=== PATIENT | female | born 1990 | race Hispanic/Latino ===

== ENCOUNTER 2023-10-13 20:09 | Emergency (ER) | payer BC, OTHER ==
[~2023-10-13] VITALS: Ht 162.6 cm; Wt 149.7 kg
[2023-10-13 20:56] LABS: BASOPHILS # (AUTO) 0.02 K/uL (0.00-0.20); BASOPHILS % (AUTO) 0.2 % (0.0-5.0); HEMATOCRIT 41.4 % (36-48); IMMATURE GRANULOCYTE ABSOLUTE 0.03 K/uL (0-1); LYMPHOCYTES # (AUTO) 2.8 K/uL (1.0-4.8); MEAN CORPUSCULAR HEMOGLOBIN 28.9 pg (27.0-33.0); MEAN CORPUSCULAR HGB CONC 32.1 g/dL (32.0-36.0); MEAN CORPUSCULAR VOLUME 89.8 fL (79-99); MONOCYTES # (AUTO) 0.7 K/uL (0.1-1.0); MONOCYTES % (AUTO) 7.2 % (3.0-13.0); NEUTROPHILS % (AUTO) 62.3 % (40.0-77.0); PLATELET COUNT (AUTO) 262 K/uL (130-400); RED BLOOD CELL COUNT(AUTO) 4.61 MIL/uL (4.00-5.50); RED CELL DISTRIBUTION WIDTH 14.4 % (11.0-15.5); WHITE BLOOD COUNT (AUTO) 9.7 K/uL (4.8-10.8)
[2023-10-13 21:01] LABS: APPEARANCE,URINE CLEAR (CLEAR); BILIRUBIN,URINE NEGATIVE (NEGATIVE); COLOR,URINE YELLOW (YELLOW); GLUCOSE, URINE (UA) >=1000 mg/dL (NEGATIVE); KETONES,URINE 5 mg/dL (NEGATIVE); LEUKOCYTE ESTERASE ,URINE NEGATIVE Leu/uL (NEGATIVE); NITRATE,URINE NEGATIVE (NEGATIVE); OCCULT BLOOD,URINE MODERATE (NEGATIVE); PROTEIN,URINE 10 mg/dL (NEGATIVE)
[2023-10-13 21:02] LABS: ADD UA MICROSCOPIC YES
[2023-10-13 21:04] LABS: CREATININE 0.7 mg/dL (0.5-1.0); POTASSIUM 3.6 mmol/L (3.5-5.1)
[2023-10-13 21:04] LABS: HCG,QUALITATIVE URINE NEGATIVE (NEGATIVE)
[2023-10-13 21:05] LABS: BACTERIA,URINE RARE /HPF (None Seen); MUCUS,URINE RARE LPF (None Seen); SQUAMOUS EPITHELIAL CELL,UR RARE /HPF (0-2)
[2023-10-13 21:07] LABS: INR 0.95 (0.85-1.15); PROTHROMBIN TIME 10.3 SEC (9.6-11.6)
[2023-10-13 21:08] LABS: PARTIAL THROMBOPLASTIN TIME 28.2 SEC (26.3-35.5)
[2023-10-13 21:16] LABS: B-TYPE NATRIURETIC PEPTIDE 64 pg/mL (0-100)
[2023-10-13] MEDS: PANTOPRAZOLE 40 MG/VIAL IVP ONE (22:14)
[2023-10-13] MEDS: MAG/ALUM/SIMETH 30 ML UDCUP PO ONE (22:14)
[2023-10-13] MEDS: KETOROLAC 30MG VIAL (30MG/ML) IM ONE (22:14)
[2023-10-13] MEDS: LIDOCAINE HCL 2% VISCOUS 15 ML UDCUP PO ONE (22:15)
[2023-10-13] MEDS ORDERED: NAPR-1196 PO (22:27)
[2023-10-13] MEDS ORDERED: PANT40TA55 PO (22:27)
[2023-10-13 22:43] VITALS: BP 124/71; PULSE 63; RESP 18; O2SAT 97
== END 2023-10-13 22:57 | disposition home or self-care (01) ==
LOC: EDH 20:09
DX: K21.9 Gastro-esophageal reflux disease without esophagitis (principal); R07.89 Other chest pain; E11.9 Type 2 diabetes mellitus without complications; I10 Essential (primary) hypertension; J45.909 Unspecified asthma, uncomplicated; Z90.89 Acquired absence of other organs; Z98.890 Other specified postprocedural states
CPT/HCPCS: 99285; 96374; 71045; 82550; 84484 ×2; 80048; 83880; 85025; 85610; 85730; 81001; 81025; 36415; 96372; 93005; J1885; J2470

== ENCOUNTER → 2023-11-11 | Outpatient (CLI) | payer OTHER ==
[~2023-11-11] MED LIST: NAPR-1196 PO; PANT40TA55 PO
== END | disposition home or self-care (01) ==
LOC: RAH 08:07
PROVIDERS: ATTEND Physical Medicine & Rehabilitation
DX: M47.816 Spondylosis without myelopathy or radiculopathy, lumbar region (principal); M48.07 Spinal stenosis, lumbosacral region; M51.36 Other intervertebral disc degeneration, lumbar region; M53.2X6 Spinal instabilities, lumbar region
CPT/HCPCS: 72148

== ENCOUNTER → 2023-11-13 | Outpatient (CLI) | payer OTHER | END | disposition home or self-care (01) | LOC: RAH 13:32 | PROVIDERS: ATTEND Physical Medicine & Rehabilitation | DX: M47.816 Spondylosis without myelopathy or radiculopathy, lumbar region (principal); E04.1 Nontoxic single thyroid nodule; M48.061 Spinal stenosis, lumbar region without neurogenic claudication; M51.36 Other intervertebral disc degeneration, lumbar region; M53.2X6 Spinal instabilities, lumbar region | CPT/HCPCS: 72131; 76536 ==

== ENCOUNTER → 2023-11-21 | Outpatient (CLI) | payer OTHER | END | disposition home or self-care (01) | LOC: SHCH 12:52 | PROVIDERS: ATTEND Internal Medicine Cardiovascular Disease | DX: R00.2 Palpitations (principal) | CPT/HCPCS: 93306 ==

== ENCOUNTER → 2023-12-09 | Outpatient (CLI) | payer OTHER ==
[2023-12-09 13:27] LABS: BASOPHILS # (AUTO) 0.04 K/uL (0.00-0.20); BASOPHILS % (AUTO) 0.4 % (0.0-5.0); EOSINOPHILS # (AUTO) 0.15 K/uL (0.00-0.70); EOSINOPHILS % (AUTO) 1.4 % (0.0-8.0); HEMATOCRIT 41.5 % (36-48); IMMATURE GRANULOCYTE ABSOLUTE 0.05 K/uL (0-1); LYMPHOCYTES # (AUTO) 3.4 K/uL (1.0-4.8); LYMPHOCYTES % (AUTO) 33.1 % (21.0-51.0); MEAN CORPUSCULAR HEMOGLOBIN 28.7 pg (27.0-33.0); MEAN CORPUSCULAR HGB CONC 31.8 g/dL (32.0-36.0); MEAN CORPUSCULAR VOLUME 90.2 fL (79-99); MONOCYTES # (AUTO) 0.6 K/uL (0.1-1.0); NEUTROPHILS # (AUTO) 6.1 K/uL (1.8-7.7); NEUTROPHILS % (AUTO) 58.6 % (40.0-77.0); PLATELET COUNT (AUTO) 286 K/uL (130-400); RED CELL DISTRIBUTION WIDTH 14.1 % (11.0-15.5); WHITE BLOOD COUNT (AUTO) 10.4 K/uL (4.8-10.8)
[2023-12-09 13:34] LABS: HEMOGLOBIN A1C 6.2 % (4.0-6.0)
[2023-12-09 13:54] LABS: % IRON SATURATION 12.5 % (22-44)
[2023-12-09 14:10] LABS: ALBUMIN 3.3 g/dL (3.5-5.0); BILIRUBIN,TOTAL 0.1 mg/dL (0.2-1.0); CREATININE 0.6 mg/dL (0.5-1.0); POTASSIUM 3.2 mmol/L (3.5-5.1); TOTAL PROTEIN, SERUM 7.8 g/dL (6.0-8.3)
[2023-12-09 14:31] LABS: THYROID STIMULATING HORMONE 3.93 uIU/mL (0.36-3.74)
== END | disposition home or self-care (01) ==
LOC: RAH 12:28
PROVIDERS: ATTEND Physician Assistant
DX: M17.0 Bilateral primary osteoarthritis of knee (principal); M25.862 Other specified joint disorders, left knee; M25.861 Other specified joint disorders, right knee; M25.762 Osteophyte, left knee; M25.761 Osteophyte, right knee; K21.00 Gastro-esophageal reflux disease with esophagitis, without bleeding; I10 Essential (primary) hypertension; E11.9 Type 2 diabetes mellitus without complications; E66.01 Morbid (severe) obesity due to excess calories; M25.562 Pain in left knee; M25.561 Pain in right knee
CPT/HCPCS: 36415; 73565; 80053; 80061; 82306; 82607; 82728; 82746; 83036; 83540; 83550; 84439; 84443; 84590; 85025; 73560

== ENCOUNTER → 2023-12-11 | Outpatient (CLI) | payer OTHER ==
[~2023-12-11] VITALS: Ht 12.7 cm; Wt 153.1 kg
== END | disposition home or self-care (01) ==
LOC: DTH 08:04
PROVIDERS: ATTEND Surgery
DX: E66.01 Morbid (severe) obesity due to excess calories (principal); I10 Essential (primary) hypertension; K21.9 Gastro-esophageal reflux disease without esophagitis; E11.9 Type 2 diabetes mellitus without complications; M19.90 Unspecified osteoarthritis, unspecified site; Z68.32 Body mass index [BMI] 32.0-32.9, adult; Z71.3 Dietary counseling and surveillance
CPT/HCPCS: 97802

== ENCOUNTER → 2024-01-08 | Outpatient (CLI) | payer OTHER ==
--- NOTE | 2024-01-08 08:25 | NUR ---
BARIATRIC FOLLOW UP NOTE VISIT 2 OF 6 Wt: 330 LBS DOS: 01/08/24 Upon follow up visit, pt presents with a 7 lb wt loss. 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 D 5000 IU every other day, plans to start exercising. RD conducted 24 hr food recall. Breakfast: N/A Lunch: N/A Dinner: two flour tacos egg and chorizo RD reviewed simple CHO and complex CHO intake, encouraged pt to decrease soft drink (even sugar free) consumption secondary to carbonation and caffeine, discussed labs, encouraged Pt to exercise, pt verbalized understanding. RD and pt established goals for next month: -MVI QD -2 meals per day -walking 1x per week for 10 min Thank you for this visit Addendum: 01/08/24 at [address] Amended: Links added.
== END | disposition home or self-care (01) ==
LOC: DTH 07:37
PROVIDERS: ATTEND Surgery
DX: E66.01 Morbid (severe) obesity due to excess calories (principal); E11.9 Type 2 diabetes mellitus without complications; I10 Essential (primary) hypertension; K21.9 Gastro-esophageal reflux disease without esophagitis; G47.33 Obstructive sleep apnea (adult) (pediatric); Z71.3 Dietary counseling and surveillance
CPT/HCPCS: 97803

== ENCOUNTER → 2024-02-04 | Outpatient (CLI) | payer OTHER ==
[2024-02-04 22:14] VITALS: PULSE 64; RESP 12
[2024-02-04 22:30] VITALS: PULSE 65; RESP 18
[2024-02-04 23:00] VITALS: PULSE 64; RESP 14
[2024-02-04 23:28] VITALS: PULSE 62; RESP 16
[2024-02-05] VITALS (13 sets, daily range): PULSE 50–68; RESP 6–16
--- NOTE | 2024-02-05 00:48 | NUR ---
CURRENT MEDICATIONS: CHLORRHALIDONE 25MG, LOSARTAN 25 MG, METOPROLOL 180 MG, TARDIANE 25 MG, FLUOXETINE 20MG, ZYRTEC 10 MG, MICROGESTIN P/20. Addendum: 02/05/24 at 0051 by RILEY HEWITT Amended: Links added.
== END | disposition home or self-care (01) ==
LOC: SLP 20:44
PROVIDERS: ATTEND Internal Medicine Pulmonary Disease
DX: G47.33 Obstructive sleep apnea (adult) (pediatric) (principal); G47.10 Hypersomnia, unspecified; G47.11 Idiopathic hypersomnia with long sleep time; G47.12 Idiopathic hypersomnia without long sleep time; G47.30 Sleep apnea, unspecified
CPT/HCPCS: 95811

== ENCOUNTER → 2024-02-05 | Outpatient (CLI) | payer SELFPAY ==
--- NOTE | 2024-02-05 08:14 | NUR ---
FOLLOW PRE-OP/POST-OP DIETARY RECOMMENDATIONS BARIATRIC PRE-OP VISIT VISIT 3 OF 6 Wt: 329.4 lbs DOS: 02/05/24 Upon follow up visit, pt presented with a 1 lb Wt loss. Pt reported she has a job interview today, has been stressed due to being laid off, continues w/ carbonation, walking 2x per week for 15 min, had a sleep study today, does not take MVI regularly. RD reviewed educational material for pre-op and post-op diet recommendations with detailed phases of diet post-op. Pt was informed of importance of lifelong vitamin/mineral supplementation, choosing protein first during meals (pt was educated on higher protein requirements), choosing low calorie, sugar free, carbonated free and caffeine beverages. RD also informed pt on lifelong commitment to exercise and dietary recommendations for optimal success post surgery. RD encouraged getting blood work every 3 to 6 months, including B-vitamins, Pt verbalized understanding. RD informed Pt on moving around after procedure to prevent DVT, Pt verbalized understanding. Pt was encouraged to contact RD as questions arise and to attend support groups. RD provided protein supplement recommendations along with Bariatric Vitamin recommendations via graphics to patient. Pt with several questions, all of which were answered. Fair to poor compliance suspected. Pt will benefit from outpatient bariatric dietitian follow up post procedure. Pt to follow up with PCP for labs. Thank you for this visit. Addendum: 02/05/24 at [address] Amended: Links added.
== END | disposition home or self-care (01) ==
LOC: DTH 07:46
PROVIDERS: ATTEND Surgery
DX: E66.01 Morbid (severe) obesity due to excess calories (principal); E11.9 Type 2 diabetes mellitus without complications; K21.9 Gastro-esophageal reflux disease without esophagitis; G47.33 Obstructive sleep apnea (adult) (pediatric); Z71.3 Dietary counseling and surveillance; Z68.43 Body mass index [BMI] 50.0-59.9, adult
CPT/HCPCS: 97803

== ENCOUNTER 2024-03-11 20:57 | Inpatient (IN) | payer OTHER ==
[~2024-03-11] VITALS: Ht 162.6 cm; Wt 143.3 kg
[~2024-03-11 20:57] MED LIST changes: +CETI-89 PO; +CHLO25TA3 PO; +CYCL10TA16 PO; +EMPA25TA PO; +FLUO20TA29 PO; +LOSA25TA41 PO; +METO-409 PO; -NAPR-1196 PO; -PANT40TA55 PO; +[UNRECOGNIZED DRUG - CODE] PO
[2024-03-11] MEDS ORDERED: hydroMORPHone 1 MG INJ IVP ONE (21:30)
[2024-03-11 21:51] LABS: BASOPHILS # (AUTO) 0.04 K/uL (0.00-0.20); BASOPHILS % (AUTO) 0.3 % (0.0-5.0); EOSINOPHILS # (AUTO) 0.08 K/uL (0.00-0.70); EOSINOPHILS % (AUTO) 0.6 % (0.0-8.0); HEMATOCRIT 38.5 % (36-48); IMMATURE GRANULOCYTE ABSOLUTE 0.08 K/uL (0-1); LYMPHOCYTES # (AUTO) 2.9 K/uL (1.0-4.8); LYMPHOCYTES % (AUTO) 23.2 % (21.0-51.0); MEAN CORPUSCULAR HEMOGLOBIN 28.8 pg (27.0-33.0); MEAN CORPUSCULAR HGB CONC 32.2 g/dL (32.0-36.0); MEAN CORPUSCULAR VOLUME 89.5 fL (79-99); MONOCYTES # (AUTO) 0.9 K/uL (0.1-1.0); MONOCYTES % (AUTO) 7.2 % (3.0-13.0); NEUTROPHILS # (AUTO) 8.4 K/uL (1.8-7.7); NEUTROPHILS % (AUTO) 68.1 % (40.0-77.0); PLATELET COUNT (AUTO) 257 K/uL (130-400); WHITE BLOOD COUNT (AUTO) 12.4 K/uL (4.8-10.8)
[2024-03-11] MEDS: LACTATED RINGERS 1000ML 1,000 ML IV ONE (21:53)
--- NOTE | 2024-03-11 21:57 | ERN ---
General Chief Complaint: Abdominal Pain Stated Complaint: ABDOMINAL PAIN, NECK AND BACK PAIN Time Seen by MD: 21:09 History of Present Illness Initial Comments 33-year-old female, history of diabetes, hypertension, obesity, asthma presents for left-sided abdominal chest pain and shoulder pain. Patient had a laparoscopic gastric sleeve placed on 03/05/[address] Yan Rodriges. She reports that initially she was feeling well but over the last day or so she has had episodes of left-sided chest pain that is significant it is also left-sided abdominal pain radiates to the left arm. Today she had multiple episodes of near-syncope where she felt as though she was going to lose consciousness. She took her blood pressure at home it was 86 systolic. She denies any cough or co ngestion. She denies any vomiting or diarrhea. She has been p.o. tolerant she was initially drinking 36 oz daily but today she has only been able to keep down 8 oz or so. Of note, while in the emergency department the patient had an episode of becoming very pale, diaphoretic, in her blood pressure dropped to the 80s systolic in her heart rate increased to the 100 and 30s. She received fluids and these symptoms improved. Allergies: Coded Allergies: No Known Allergies (Unverified Allergy, Unknown, 10/13/23) Home Meds Reported Medications Cyclobenzaprine HCl (Flexeril) 10 Mg Tab, 10 MG PO BID PRN for MUSCLE SPASMS, TAB 03/02/24 Norethindrone A-E Estradiol (Microgestin) 1 Mg-20 Mcg Tablet, 1 EACH PO DAILY, TAB 03/02/24 Empagliflozin (Jardiance) 25 Mg Tablet, 25 MG PO DAILY, TAB 03/02/24 Cetirizine HCl (Zyrtec) 10 Mg Tablet, 10 MG PO DAILY, TAB 03/02/24 Fluoxetine HCl (Fluoxetine HCl) 20 Mg Tablet, 20 MG PO DAILY, TAB 03/02/24 Chlorthalidone (Chlorthalidone) 25 Mg Tablet, 25 MG PO DAILY, TAB 03/02/24 Losartan Potassium (Losartan Potassium) 25 Mg Tablet, 25 MG PO DAILY, TAB 03/02/24 Metoprolol Succinate (Metoprolol Succinate) 100 Mg Tab.er.24h, 100 MG PO DAILY, TAB 03/02/24 Discontinued Reported Medications Cyclobenzaprine HCl (Flexeril) 10 Mg Tab, 10 MG PO AD PRN for MUSCLE SPASMS, TAB 03/02/24 Past Medical History Past Medical History: Asthma, Diabetes-Type II, Hypertension, Other Medical History Other: TACHYCARDIA, PVC Past Surgical History: Tonsillectomy, Other Surgical History Other: LEFT KNEE, ADNOIDS, OVARIAN CYST, NASAL ROS Dictation CONSTITUTIONAL: No chills, no fever, no weakness, no diaphoresis, no malaise. HEAD/FACE: No signs of trauma. EENT: No eye pain, no blurred vision, no tearing, no double vision, no ear pain, no ear discharge, no nose pain, no nasal congestion, no throat pain, no throat swelling, no mouth pain. RESPIRATORY: No cough, no orthopnea, no SOB, no stridor, no wheezing. CARDIOVASCULAR: No chest pain, no edema, no palpitations, no syncope. GASTROINTESTINAL/ABDOMINAL: Left-sided abdominal pain left-sided chest pain dizziness near-syncope GENITOURINARY: No abnormal discharge, no dysuria, no frequent urination, no hematuria. No complaints of pain in the genitals. MUSCULOSKELETAL: No back pain, no gout, no joint pain, no joint swelling, no muscle pain, no muscle stiffness, no neck pain. INTEGUMENTARY: No change in color, no change in hair/nails, no dryness, no lesion, no lumps, no rash. NEUROLOGICAL/PSYCH: No anxiety, not depressed, no emotional problem, no headache, no numbness, no pre-existing deficit, no history of seizures, no tremors, no weakness. HEMATOLOGIC/LYMPHATIC: Not anemic, no history of blood clots, no apparent bleeding, no bruising, glands not swollen. All Systems Negative, Except as Noted. Physical Exam Physical Exam Dictation VITAL SIGNS: Reviewed. GENERAL APPEARANCE: Alert, moderate distress, obese HEAD AND FACE: Non-traumatic. EYES: PERRL, pink conjunctivas, eyelid no trauma, anterior chamber clear. EARS: Pinnas intact and no signs of trauma or erythema. Ear canals clear and no discharge. TMs no erythema. NOSE: No discharge, no bleeding. OROPHARYNX: Mouth normal, teeth no caries, tongue pink. Pharynx clear, no erythema. Tonsils no exudates, no abscesses noted. Mucous membrane moist. NECK: Supple, non-tender, no thyromegaly, no masses, no JVD, no bruits. BREAST: Deferred. CHEST: No tenderness, no crepitus, no paradoxical movement, no retractions. LUNGS: Clear, well-ventilated, symmetric, no rales, no wheezing, no rhonchi, no stridor, good breath sounds bilaterally. HEART: Regular rate, regular rhythm, no murmur, no gallops. VASCULAR: No peripheral edema. ABDOMEN: Soft, positive bowel sounds, nondistended, no guarding, nontender, no rebound, no masses no hepatomegaly, no splenomegaly, no Funes's sign, no hernias. Well healing laparoscopic wounds. RECTAL: Deferred. GENITAL: Deferred. NEUROLOGICAL: Normal speech, gross motor function intact, gross sensory function intact. MUSCULOSKELETAL: Neck nontender, full range of motion, back nontender, full range of motion. EXTREMITIES: Nontender, full range of motion. SKIN: Color pink, dry, no turgor, no rash, no lacerations, no abrasions, no contusions. LYMPHATICS: Deferred. Results Laboratory and Microbiology Lab and Micro Result Laboratory Tests Test 03/11/24 21:31 03/11/24 21:37 White Blood Count 12.4 K/uL (4.8-10.8) H Red Blood Count 4.30 MIL/uL (4.00-5.50) Hemoglobin 12.4 g/dL (12.0-16.0) Hematocrit 38.5 % (36-48) Mean Corpuscular Volume 89.5 fL (79-99) Mean Corpuscular Hemoglobin 28.8 pg (27.0-33.0) Mean Corpuscular Hemoglobin Concent 32.2 g/dL (32.0-36.0) Red Cell Distribution Width 14.0 % (11.0-15.5) Platelet Count 257 K/uL (130-400) Mean Platelet Volume 11.9 fL (7.5-10.5) H Immature Granulocyte % (Auto) 0.6 % (0-1) Neutrophils (%) (Auto) 68.1 % (40.0-77.0) Lymphocytes (%) (Auto) 23.2 % (21.0-51.0) Monocytes (%) (Auto) 7.2 % (3.0-13.0) Eosinophils (%) (Auto) 0.6 % (0.0-8.0) Basophils (%) (Auto) 0.3 % (0.0-5.0) Neutrophils # (Auto) 8.4 K/uL (1.8-7.7) H Lymphocytes # (Auto) 2.9 K/uL (1.0-4.8) Monocytes # (Auto) 0.9 K/uL (0.1-1.0) Eosinophils # (Auto) 0.08 K/uL (0.00-0.70) Basophils # (Auto) 0.04 K/uL (0.00-0.20) Absolute Immature Granulocyte (auto 0.08 K/uL (0-1) Nucleated Red Blood Cells 0.0 % (0.0-0.19) Sodium Level 135 mmol/L (136-145) L Potassium Level 3.4 mmol/L (3.5-5.1) L Chloride Level 97 mmol/L (101-111) L Carbon Dioxide Level 23 mmol/L (21-32) Blood Urea Nitrogen 8 mg/dL (7-18) Creatinine 0.6 mg/dL (0.5-1.0) Glomerular Filtration Rate Calc 121 mL/min (>90) Random Glucose 79 mg/dL (70-105) Total Calcium 9.1 mg/dL (8.5-10.1) Total Bilirubin 0.6 mg/dL (0.2-1.0) Direct Bilirubin 0.1 mg/dL (0.0-0.3) Aspartate Amino Transf (AST/SGOT) 43 U/L (10-37) H Alanine Aminotransferase (ALT/SGPT) 73 U/L (12-78) Alkaline Phosphatase 63 U/L (50-136) Troponin I High Sensitivity 5 ng/L (4-50) Total Protein 7.3 g/dL (6.0-8.3) Albumin 3.2 g/dL (3.5-5.0) L Lipase 33 U/L (16-77) Serum Test, Qualitative NEGATIVE (NEGATIVE) Whole Blood Glucose 102 MG/DL (70-110) MDM CC: Abdominal pain, chest pain, neck pain, syncopal episode x2 Historian: Patient Comorbidities: Obesity, asthma, DM two, HTN. Recent laparoscopic gastric band on 03/05/2024. Vital signs: Initially tachycardic 106, blood pressure 144/92. Other vital signs stable. Differential diagnosis: Pulmonary embolism, postop complication, ACS, surgical pathology, other. Labs (independently ordered and interpreted by me): Leukocytosis 12.4k, no shift no bands. H and H stable 12.4/38.5. Chemistry panel unremarkable, liver enzymes unremarkable, troponin normal. Lipase normal. HCG is negative. CXR (independently ordered and interpreted by me): No acute abnormalities no focal infiltrates no cardiomegaly. CT scan of the abdomen and pelvis with contrast (independently ordered and interpreted by me): Free fluid around the liver in the pelvis, possibly a postop complication. No free air. Possibly a hematoma next of the stomach. Possibly hemoperitoneum. CT angio of the chest (independently interpreted by me): No lung field abnormalities, no pulmonary embolism. Treatment in ED: 1 mg IV Dilaudid, 2 L normal saline IV, fentanyl IV. Consultations in ED: Dr. Almonte, radiologist. It we reviewed the imaging. He does not recommend any further imaging at this time, but we can repeat a CT scan tomorrow if there is any indications the patient was still bleeding. Dr. Yan Rodriges, surgeon performed the procedure on 03/05/2024. We agreed on a plan to admit the patient was in the ICU for close monitoring, hemoglobin monitoring, and pain control. He will see the patient tomorrow. We will call back if there is any emergent need tonight. Yudi Gottlieb, midlevel provider for ICU team. Accepts the patient to the ICU. Rj, mid-level provider for [facility] hospitalist team. Will admit the patient. Plan: ICU admission, q.6 hemoglobin checks for now. Pain control. REASON: L sided CP ORDERING PHYSICIAN: MIS CHAMBERS DO PROCEDURE: CXR1VW - CHEST 1VW CHEST 1VW HISTORY: Left-sided chest pain COMPARISON: None FINDINGS: A frontal projection of the chest was obtained. There are bilateral pulmonary infiltrates suggestive of pulmonary vascular congestion with possible superimposed pneumonitis. The heart is borderline enlarged. Degenerative changes are seen. No evidence of aortic calcification is seen. IMPRESSION: 1. Bilateral pulmonary infiltrates are seen suggestive of pulmonary vascular congestion with possible superimposed pneumonitis. REASON: L sided abd pain, bloating, CP s/p lap band 03/05 ORDERING PHYSICIAN: MIS CHAMBERS DO PROCEDURE: CHES PE - CT CHEST PE PROTOCOL WWO CONT ADDENDUM REPORT CT CHEST PE PROTOCOL WWO CONT HISTORY: Left-sided abdominal pain COMPARISON: None TECHNIQUE: CT angiography of the chest was performed. The study was performed using angiographic technique with maximum intensity projection reconstruction images. Patient was given 100 cc of Omnipaque through intravenous route. FINDINGS: No CT evidence of filling defect is seen to suggest pulmonary embolus. No CT evidence of aortic dissection is seen. No evidence of parenchymal disease is seen. No CT evidence of pleural effusion or pericardial effusion is seen. The heart is enlarged. No evidence of adrenal mass is seen. There is small perihepatic and moderate perisplenic complex fluid collection. Due to patient's recent history of abdominal procedure, findings may be related to pneumoperitoneum. Post gastric surgical changes are seen. Degenerative changes of the spine are noted. IMPRESSION: 1. No CT evidence of acute pulmonary embolus is seen. There is small perihepatic and moderate perisplenic complex fluid collection. Due to patient's recent history of abdominal procedure, findings may be related to hemoperitoneum. Post gastric surgical changes are seen. Report was given to the emergency room physician. REASON: L sided abd pain, bloating, CP s/p lap band 03/05 ORDERING PHYSICIAN: MIS CHAMBERS DO PROCEDURE: ABD PEL W - CT ABDOMEN/PELVIS W/CONTRAST CT ABDOMEN/PELVIS W/CONTRAST HISTORY: Left-sided abdominal pain COMPARISON: None TECHNIQUE: Multiple sequential axial images of the abdomen and pelvis were obtained from the dome of the diaphragm through symphysis pubis. Patient was not given contrast through intravenous route. Oral contrast was not given. FINDINGS: No pleural effusion is seen bilaterally. There is no evidence of parenchymal disease or pulmonary nodule of the visualized lower lungs. Degenerative changes of the thoracolumbar spine are present. The heart is not enlarged. Liver is enlarged with fatty changes measuring 18 cm. Post gastric surgical changes are seen. Complex fluid is also seen adjacent to the stomach at the postop site measuring 2.5 x 10.4 cm may be related to hematoma. There is left perisplenic complex fluid collection may be related to blood product. Clinical correlation is recommended. Splenic injury with postop bleed cannot be excluded. The liver, adrenal glands and pancreas are unremarkable. There is no evidence of hydronephrosis bilaterally. No evidence of renal stone is seen. Fecal material is seen in the colon. There are normal size retroperitoneal and mesenteric lymph nodes. There is small complex ascites. Atherosclerotic changes are present. Pelvic sidewalls are symmetric bilaterally. Bladder is well distended without wall thickening. IMPRESSION: 1. There is left perisplenic complex fluid collection may be related to blood product. Clinical correlation is recommended. Complex fluid is also seen adjacent to the stomach at the postop site measuring 2.5 x 10.4 cm may be related to hematoma. Splenic injury with postop bleed cannot be excluded. There is small complex ascites. Findings may be related to hemoperitoneum. Report was given to the emergency room physician. ED Course Orders Procedure Category Date Status Time Cbc With Differential LAB 03/11/24 Complete 21: Troponin I High LAB 03/11/24 Complete Sensitivity 21:22 Urinalysis Profile LAB 03/11/24 Logged 21:22 Ct Abdomen/Pelvis CT 03/11/24 Resulted W/Contrast 21:22 Chest 1vw RAD 03/11/24 Resulted 21:22 Lipase LAB 03/11/24 Complete 21:22 Basic Metabolic Panel LAB 03/11/24 Complete 21:22 Hydromorphone 1 Mg PHA 03/11/24 Complete Inj (Dilaudid 1mg Inj 21:30 Lactated Ringers PHA 03/11/24 Complete 1000ml (Lactated 21:30 Ct Chest Pe Protocol CT 03/11/24 Resulted Wwo Cont 21:22 Hepatic Function Panel LAB 03/11/24 Complete 21:22 Fentanyl Citrate Pf PHA 03/11/24 Complete 0.05 Mg/Ml (Fentanyl 22:00 Testing, LAB 03/11/24 Complete Serum Hcg 22:14 Iohexol (Omnipaque) PHA 03/11/24 Complete 22:37 Type And Screen BBK 03/11/24 Complete 23:29 Current Medications Medications (Trade) Dose Ordered Sig/Miko Route PRN Reason Start Time Stop Time Status Last Admin Dose Admin Fentanyl Citrate (FENTanyl CITRate PF 50 MCG/ 1 ML 2ML VIAL) 50 mcg ONCE ONCE IVP 03/11/24 22:00 03/11/24 22:01 DC 03/11/24 22:28 Hydromorphone HCl (DiLAUDid 1MG INJ) 1 mg ONCE ONCE IVP 03/11/24 21:30 03/11/24 22:25 DC Iohexol (Omnipaque) 35,000 mg STK-MED ONCE IV 03/11/24 22:37 03/11/24 22:38 DC Lactated Ringer's 1,000 ml @ 0 mls/hr ONCE ONCE IV 03/11/24 21:30 03/11/24 21:31 DC 03/11/24 21:53 Vital Signs Date Time Temp Pulse Resp B/P (MAP) Pulse Ox O2 Delivery O2 Flow Rate FiO2 03/11/24 22:09 97.5 85 26 141/77 94 Room Air* 0 21 03/11/24 21:09 97.9 108 26 101/75 94 Room Air* 0 21 03/11/24 21:00 106 20 144/92 97 Room Air 0 DX & DISP Disposition: Inpatient Departure Impression: Primary Impression: Syncope Additional Impression: Post-operative complication Critical Time: 30 minutes (Critical Care Procedure NoteAuthorized and Performed by: meTotal critical care time: Approximately 36 minutesDue to a high probability of clinically significant, life threatening deterioration, the patient required my highest level of preparedness to intervene emergently and I personally spent this critical care time directly and personally managing the patient. This critical care time included obtaining a history; examining the patient; pulse oximetry; ordering and review of studies; arranging urgent treatment with development of a management plan; evaluation of patient's response to treatment; frequent reassessment; and, discussions with other providers.This critical care time was performed to assess and manage the high probability of imminent, life-threatening deterioration that could result in multi-organ failure. It was exclusive of separately billable procedures and treating other patients and teaching time.Please see MDM section and the rest of the note for further information on patient assessment and treatment.) Condition: Critical Referrals: HECTOR ESTRADA MD (PCP) MIS CHAMBERS DO Mar 11, 2024 21:57
[2024-03-11 22:02] LABS: CREATININE 0.6 mg/dL (0.5-1.0); POTASSIUM 3.4 mmol/L (3.5-5.1)
[2024-03-11 22:08] LABS: ALBUMIN 3.2 g/dL (3.5-5.0); BILIRUBIN,DIRECT 0.1 mg/dL (0.0-0.3); BILIRUBIN,TOTAL 0.6 mg/dL (0.2-1.0); TOTAL PROTEIN, SERUM 7.3 g/dL (6.0-8.3)
[2024-03-11] MEDS: FENTanyl CITRate PF 50 MCG/1 ML 2ML VIAL IVP ONE (22:28)
--- NOTE | 2024-03-11 22:34 | HMCIMG ---
CHEST 1VW HISTORY: Left-sided chest pain COMPARISON: None FINDINGS: A frontal projection of the chest was obtained. There are bilateral pulmonary infiltrates suggestive of pulmonary vascular congestion with possible superimposed pneumonitis. The heart is borderline enlarged. Degenerative changes are seen. No evidence of aortic calcification is seen. IMPRESSION: 1. Bilateral pulmonary infiltrates are seen suggestive of pulmonary vascular congestion with possible superimposed pneumonitis.
[2024-03-11] MEDS ORDERED: IOHEXOL 350 MG/ML 100ML INFUS..BTL IV ONE (22:37)
--- NOTE | 2024-03-11 23:29 | HMCIMG ---
CT ABDOMEN/PELVIS W/CONTRAST HISTORY: Left-sided abdominal pain COMPARISON: None TECHNIQUE: Multiple sequential axial images of the abdomen and pelvis were obtained from the dome of the diaphragm through symphysis pubis. Patient was not given contrast through intravenous route. Oral contrast was not given. FINDINGS: No pleural effusion is seen bilaterally. There is no evidence of parenchymal disease or pulmonary nodule of the visualized lower lungs. Degenerative changes of the thoracolumbar spine are present. The heart is not enlarged. Liver is enlarged with fatty changes measuring 18 cm. Post gastric surgical changes are seen. Complex fluid is also seen adjacent to the stomach at the postop site measuring 2.5 x 10.4 cm may be related to hematoma. There is left perisplenic complex fluid collection may be related to blood product. Clinical correlation is recommended. Splenic injury with postop bleed cannot be excluded. The liver, adrenal glands and pancreas are unremarkable. There is no evidence of hydronephrosis bilaterally. No evidence of renal stone is seen. Fecal material is seen in the colon. There are normal size retroperitoneal and mesenteric lymph nodes. There is small complex ascites. Atherosclerotic changes are present. Pelvic sidewalls are symmetric bilaterally. Bladder is well distended without wall thickening. IMPRESSION: 1. There is left perisplenic complex fluid collection may be related to blood product. Clinical correlation is recommended. Complex fluid is also seen adjacent to the stomach at the postop site measuring 2.5 x 10.4 cm may be related to hematoma. Splenic injury with postop bleed cannot be excluded. There is small complex ascites. Findings may be related to hemoperitoneum. Report was given to the emergency room physician. CT was performed with one or more following dose reduction techniques: automated exposure control, adjustment of the mA and kv according to patient's size, or use of a iterative reconstruction technique.
--- NOTE | 2024-03-11 23:30 | HMCIMG ---
CT CHEST PE PROTOCOL WWO CONT HISTORY: Left-sided abdominal pain COMPARISON: None TECHNIQUE: CT angiography of the chest was performed. The study was performed using angiographic technique with maximum intensity projection reconstruction images. Patient was given 100 cc of Omnipaque through intravenous route. FINDINGS: No CT evidence of filling defect is seen to suggest pulmonary embolus. No CT evidence of aortic dissection is seen. No evidence of parenchymal disease is seen. No CT evidence of pleural effusion or pericardial effusion is seen. The heart is enlarged. No evidence of adrenal mass is seen. There is small perihepatic and moderate perisplenic complex fluid collection. Due to patient's recent history of abdominal procedure, findings may relate to hemopericardium. Post gastric surgical changes are seen. Degenerative changes of the spine are noted. IMPRESSION: 1. No CT evidence of acute pulmonary embolus is seen. There is small perihepatic and moderate perisplenic complex fluid collection. Due to patient's recent history of abdominal procedure, findings may relate to hemopericardium. Post gastric surgical changes are seen. Report was given to the emergency room physician. CT was performed with one or more following dose reduction techniques: automated exposure control, adjustment of the mA and kv according to patient's size, or use of a iterative reconstruction technique.
--- NOTE | 2024-03-11 23:49 | HP ---
History of Present Illness Reason for Visit: neck pain History of Present Illness Ms. Keller is a 33-year-old female that was seen and examined today on 03/11/2024. Patient is a good historian and personal health. Patient's mother is at bedside. Patient states that she came to the emergency department with a chief complaint of neck pain. Onset was two days ago. Location is to left side of neck and pain radiates down the left lateral chest all the way to the left hip. Duration is on and off. Character is described as sharp spasms. There was no alleviating factors. There was no aggravating factors. Patient checked her blood pressure at home and had two readings that were systolic 80s. Patient d enies any associated nausea, vomiting, diarrhea. Today in the emergency department WBCs 12.4, chemistry three shows potassium 3.4, serum test negative, no urinalysis has been collected or sent to lab, bilateral pulmonary infiltrates are seen suggestive of pulmonary vascular congestion with possible superimposed pneumonitis on chest x-ray, CT of chest shows small perihepatic and moderate perisplenic complex fluid collection. Findings may be related to hemoperitoneum. Emergency room physician consulted patient's surgeon, Dr. Yan Ang who agreed to surgical evaluate this patient in the a.m.. Requested for patient to be admitted to hospitalist service. Past Medical History Patient History: Asthma MOTHER Cardiovascular disease MOTHER FATHER Chronic obstructive pulmonary disease FATHER Diabetes mellitus FATHER Hypertension MOTHER FATHER ADDITIONAL PAST MEDICAL HISTORY: [Diabetes mellitius type2, hypertension, asthma, MARJAN] SOCIAL HISTORY: [Negative for smoking, alcohol use, drug use. Patient lives with the parents. Patient is typically independent of all her ADLs. Patient denies difficulty paying her bills. Patient is employed full-time as a nurse. Patient has good access to health care through her insurance. SURGICAL HISTORY: [Gastric sleeve on 03/05/2024] Review of Systems General: No Fever, No Chills, No Night Sweats, No Fatigue, No Malaise, No Appetite, No Other HEENT: No Head Aches, No Visual Changes, No Eye Pain, No Ear Pain, No Dysphasia, No Sinus Congestion, No Post Nasal Drip, No Sore Throat, No Other Pulmonary: No Dyspnea, No Cough, No Pleuritic Chest Pain, No Other Cardiovascular: No: Chest Pain, Palpitations, Orthopnea, Paroxysmal Noc. Dyspnea, Edema, Lt Headedness, Other Gastrointestinal: No: Nausea, Vomiting, Abdominal Pain, Diarrhea, Constipation, Melena, Hematochezia, Other Genitourinary: No Dysuria, No Frequency, No Incontinence, No Hematuria, No Retention, No Other Musculoskeletal: other (Hip pain), neck pain, shoulder pain; No: arm pain, back pain, hand pain, leg pain, foot pain Skin: No Urticaria, No Rash, No Other Neurological: No: Weakness, Numbness, Incoordination, Change in speech, Confusion, Seizures, Other Allergies: Coded Allergies: No Known Allergies (Unverified Allergy, Unknown, 10/13/23) Scheduled Cetirizine HCl (Zyrtec), 10 MG PO DAILY, (Reported) Chlorthalidone (Chlorthalidone), 25 MG PO DAILY, (Reported) Empagliflozin (Jardiance), 25 MG PO DAILY, (Reported) Enoxaparin Sodium (Lovenox), 60 MG SQ BID, (Reported) Fluoxetine HCl (Fluoxetine HCl), 20 MG PO DAILY, (Reported) Losartan Potassium (Losartan Potassium), 25 MG PO DAILY, (Reported) Metoprolol Succinate (Metoprolol Succinate), 100 MG PO DAILY, (Reported) Norethindrone A-E Estradiol (Microgestin), 1 EACH PO DAILY, (Reported) Scheduled PRN Cyclobenzaprine HCl (Flexeril), 10 MG PO BID PRN for MUSCLE SPASMS, (Reported) Discontinued Medications Cyclobenzaprine HCl (Flexeril), 10 MG PO AD PRN for MUSCLE SPASMS, (Reported) Exam Vital Signs Vital Signs Date Time Temp Pulse Resp B/P (MAP) Pulse Ox O2 Delivery O2 Flow Rate FiO2 03/11/24 21:09 97.9 108 26 101/75 94 Room Air* 0 21 General Appearance: Alert, Oriented X3, Cooperative, No acute distress HEENT: Atraumatic, PERRLA, EOMI, Mucous membr. moist/pink Respiratory: Clear to auscultation, Normal air movement, NL respiratory effort Cardiovascular: Regular rate, Regular rhythm, Normal S1, Normal S2 Abdominal: Normal bowel sounds, Soft Extremities: No edema Skin: No significant lesion Neuro: Normal speech, Strength at 5/5 X4 ext, Cranial nerves 3-12 NL Psych/Mental Status: Mental status NL, Mood NL, Thoughts/Content NL Assessment/Plan ASSESSMENT: [ Postsurgical complication status post gastric sleeve on 03/05/2024, POA Left perisplenic complex fluid collection, POA, by CT on 03/11/2024 Complex fluid adjacent to the stomach at the postop site measuring 2.5 x 10.4 cm, POA, by CT on 03/11/2024 Suspected splenic injury secondary to above Leukocytosis, POA Hypokalemia, POA Diabetes mellitius type2 Hypertension Asthma MARJAN] PLAN: [ Admit patient to intensive care unit as inpatient status. Place patient on telemetry monitoring. Patient will be followed by critical care team. Patient will be followed by General surgery Service, Dr. Yan Ang Keep patient NPO As needed analgesia with Dilaudid Check preprocedure labs, CBC, BMP, magnesium, phosphorus, PTT, UA, type and screen, EKG, CXR IV fluid maintenance therapy lactated Ringer's at 100 mL/HR Check blood culture, follow up with the results Check procalcitonin, follow up with the results Check lactic acid, follow up with the results Suspect leukocytosis most likely secondary to recent surgery Replace potassium per hospital protocol Check hemoglobin A1c in a.m. Glucometer checks a.c. and HS 1800 ADA diet once patient is no longer NPO and if okay with General surgery Service/bariatric surgery Service Humulin R sliding scale 1/2 dose Consider resuming home medications once they are reconciled For now as-needed albuterol, Hydralazine 10 mg IV every 4 hours for systolic bl ood pressure greater than 160 mmHg GI prophylaxis, Protonix IV DVT prophylaxis, Emery's and SCD ADVANCED CARE PLANNING 1. Which of the following were discussed? Hospice Care - Yes Therapeutic options - Yes Advance Directives - Yes- patient states she does not have any advance directives in place at this time, however her parents can make decisions for her if she becomes unable. Other discussions - patient wishes to remain a full code at this time 2. Discussed with who? Patient 3. Voluntary nature of this service was explained to the patient? Yes 4. Amount of time spent - ___ 16 minutes ____ 5. Reviewed by Physician? (if this service was performed by NPP) Yes Critical Care Time: I spent ____ 51 __ minutes of critical care time with the patient. I reviewed lab work, change the patient's medication, and coordinated protocol in the event of tachycardia or desaturation. The patient status remains unchanged. This document was generated in part using voice recognition software, occasional wrong word or sound alike substitutions may have occurred due to the inherent limitations of voice recognition software. Read the chart carefully and recognize using context, where the substitutions have occurred. Although every effort was made to edit the content, production lead and typing errors may occur ATTESTATION BY PHYSICIAN I have seen and examined the patient. I reviewed the documentation, medical decision making, and treatment plan as noted by the mid-level provider above. I agree with the findings and plan of care. ALYSA ANG [facility] Mar 11, 2024 23:49
[2024-03-12] VITALS (38 sets, daily range): BP systolic 106–159; BP diastolic 31–103; PULSE 59–88; RESP 15–52; TEMP 98.4–99.7; O2SAT 93–100
--- NOTE | 2024-03-12 00:36 | NUR ---
ED DOCTOR SPOKE TO DR. AISSATOU KYLE, PATIENTS SURGEON, WELL LAUREN HEREDIAP FOR A CRITICAL CARE CONSULT
--- NOTE | 2024-03-12 00:38 | NUR ---
NO HOME MEDS BROUGHT IN AT THIS TIME
[2024-03-12] MEDS ORDERED: ENOX40DI8 SQ (01:02)
[2024-03-12] MEDS ORDERED: hydrALAZine 20MG/ML VIAL IV PRN (01:30)
[2024-03-12] MEDS ORDERED: ALBUTEROL 0.083% 2.5 MG/3 ML INH IH PRN (01:30)
[2024-03-12] MEDS ORDERED: acetaMINOPHEN 650 MG SUPPOSITORY RC PRN (01:30)
[2024-03-12] MEDS: ondanSETRON 4MG INJ IV PRN (01:51)
[2024-03-12] MEDS: hydroMORPHone 0.5 MG SYG (0.5MG/0.5ML) IVP PRN (01:52)
[2024-03-12] MEDS: LACTATED RINGERS 1000ML 1,000 ML IV SCH (02:00)
[2024-03-12 02:21] LABS: BASOPHILS # (AUTO) 0.02 K/uL (0.00-0.20); BASOPHILS % (AUTO) 0.2 % (0.0-5.0); EOSINOPHILS # (AUTO) 0.02 K/uL (0.00-0.70); EOSINOPHILS % (AUTO) 0.2 % (0.0-8.0); HEMATOCRIT 32.6 % (36-48); IMMATURE GRANULOCYTE ABSOLUTE 0.08 K/uL (0-1); LYMPHOCYTES # (AUTO) 1.9 K/uL (1.0-4.8); LYMPHOCYTES % (AUTO) 15.8 % (21.0-51.0); MEAN CORPUSCULAR HEMOGLOBIN 29.3 pg (27.0-33.0); MEAN CORPUSCULAR HGB CONC 32.5 g/dL (32.0-36.0); MEAN CORPUSCULAR VOLUME 90.1 fL (79-99); MONOCYTES # (AUTO) 0.6 K/uL (0.1-1.0); MONOCYTES % (AUTO) 4.8 % (3.0-13.0); NEUTROPHILS # (AUTO) 9.5 K/uL (1.8-7.7); NEUTROPHILS % (AUTO) 78.3 % (40.0-77.0); PLATELET COUNT (AUTO) 219 K/uL (130-400); RED BLOOD CELL COUNT(AUTO) 3.62 MIL/uL (4.00-5.50); RED CELL DISTRIBUTION WIDTH 14.1 % (11.0-15.5); WHITE BLOOD COUNT (AUTO) 12.1 K/uL (4.8-10.8)
[2024-03-12 02:37] LABS: CREATININE 0.5 mg/dL (0.5-1.0); INR 1.04 (0.85-1.15); MAGNESIUM 1.4 mg/dL (1.80-2.40); PHOSPHORUS 3.4 mg/dL (2.5-4.9); POTASSIUM 3.4 mmol/L (3.5-5.1); PROTHROMBIN TIME 11.6 SEC (9.6-11.6)
[2024-03-12 02:39] LABS: PARTIAL THROMBOPLASTIN TIME 30.6 SEC (26.3-35.5)
[2024-03-12 02:41] LABS: HEMOGLOBIN A1C 5.9 % (4.0-6.0)
[2024-03-12] MEDS: PANTOPrazole 40 MG/VIAL IVP SCH (06:15)
[2024-03-12] MEDS: PoTASSium chloRIDE 10MEQ/100ML 100 ML IV PRN (06:15)
[2024-03-12] MEDS: MAGNESIUM 2GM PREMIX 50ML 50 ML IV PRN (06:16)
[2024-03-12 06:30] LABS: HEMATOCRIT 31.4 % (36-48)
[2024-03-12] MEDS: INSULIN humuLIN R 100 UNIT/ML 3ML SQ SCH (07:22)
[2024-03-12] MEDS ORDERED: PANTOPrazole 40 MG/VIAL IVP SCH (09:00)
[2024-03-12] MEDS ORDERED: CETI-89 PO (09:21)
[2024-03-12] MEDS ORDERED: PANT40TA54 PO (09:21)
[2024-03-12] MEDS ORDERED: TRAM-543 PO (09:23)
[2024-03-12] MEDS ORDERED: FAMO40TA7 PO (09:23)
[2024-03-12] MEDS: HYDROcod/acetaMINOPHEN 7.5/325 MG 15 ML UDCUP PO PRN (10:03)
--- NOTE | 2024-03-12 10:04 | PN ---
GENERAL SURGERY PROGRESS NOTE Date/Time Patient Seen: [ 03/12/24 0830] Problem List: [ ] Interval History: [Pt s/p sleeve on 03/05/24, seen today because she felt she was going to pass out and describes generalized back pain and left neck pain w radiation down to L chest. She reports not drinking much at home but has slowly increased PO intake since DOS. ] Current Medications Medications (Trade) Dose Ordered Sig/Miko Route Start Time Stop Time Status Last Admin Dose Admin Insulin Human Regular (humuLIN R 100 UNIT/ML 3ML) INSULIN SLIDING SCAL... ACHS SQ 03/12/24 07:30 04/11/24 07:29 Lactated Ringer's 1,000 ml @ 125 mls/hr Q8H IV 03/12/24 01:30 04/11/24 01:29 03/12/24 02:00 100 MLS/HR Pantoprazole Sodium (PROTonix 40MG INJ) 40 mg BID IVP 03/12/24 05:30 04/11/24 08:59 03/12/24 06:15 40 MG Pantoprazole Sodium (PROTonix 40MG INJ) 40 mg DAILY IVP 03/12/24 09:00 03/12/24 05:14 DC Physical Examination: GENERAL: [No acute distress.] HEAD: [Normal with no signs of head trauma.] EYES: [PERRLA, EOMI, conjunctiva and sclera normal.] ENT: [Hearing grossly intact, normal oropharynx.] NECK: [Supple without JVD. There is no tenderness, lymphadenopathy, or masses. No thyromegaly. Normal carotid upstrokes without bruits.] LUNGS: [Clear breath sounds bilaterally. No wheezes, or rhonchi.] HEART: [Normal rate and rhythm. Normal S1 and S2 without mumurs, gallop or rub.] VASC: [Peripheral pulses +2 bilaterally.] ABD: [Incisions clean, dry and intact, no erythema, no induration, no signs of infxn, appropriate tenderness to palpation] : [Not examined] LYMPH: [No lymphadenopathy noted.] EXT: [No clubbing, cyanosis or edema.] SKIN: [No rashes or lesions noted.] NEURO: [Awake, alert, and oriented x3. No focal sensory or strength deficits noted.] Vital Signs (last 8hr) Date Time Temp Pulse Resp B/P (MAP) Pulse Ox O2 Delivery O2 Flow Rate FiO2 03/12/24 08:00 98.4 65 17 126/72 96 Room Air 03/12/24 07:30 71 24 150/103 97 Room Air 03/12/24 07:00 66 18 126/62 95 Room Air 03/12/24 06:45 65 19 109/57 96 03/12/24 06:30 71 18 130/77 95 03/12/24 06:15 73 19 129/67 96 03/12/24 06:00 73 16 114/69 98 Room Air 03/12/24 05:45 75 22 128/81 97 03/12/24 05:30 88 23 106/31 96 03/12/24 05:15 69 19 134/78 97 03/12/24 05:00 69 52 131/72 98 Room Air 03/12/24 04:45 62 17 107/58 97 03/12/24 04:30 63 17 125/75 96 03/12/24 04:15 62 15 124/73 96 03/12/24 04:00 61 16 138/71 96 Room Air 03/12/24 04:00 98 Room Air* 0 21 03/12/24 03:45 65 17 122/74 96 03/12/24 03:30 65 15 127/66 96 03/12/24 03:15 59 16 133/67 96 03/12/24 03:06 65 19 N/A Room Air 21 03/12/24 03:00 62 17 127/66 95 Room Air 03/12/24 02:45 65 17 126/69 93 03/12/24 02:30 65 18 128/70 92 03/12/24 02:15 74 18 121/68 92 03/12/24 02:00 70 19 106/56 95 Room Air Laboratory: [ ] Hematology Labs: Test 03/12/24 06:17 03/12/24 02:13 Range/Units Hemoglobin 10.3 L 12.0-16.0 g/dL Hematocrit 31.4 L 36-48 % White Blood Count 12.1 H 4.8-10.8 K/uL Red Blood Count 3.62 L 4.00-5.50 MIL/uL Mean Corpuscular Volume 90.1 79-99 fL Mean Corpuscular Hemoglobin 29.3 27.0-33.0 pg Mean Corpuscular Hemoglobin Concent 32.5 32.0-36.0 g/dL Red Cell Distribution Width 14.1 11.0-15.5 % Platelet Count 219 130-400 K/uL Mean Platelet Volume 11.2 H 7.5-10.5 fL Immature Granulocyte % (Auto) 0.7 0-1 % Neutrophils (%) (Auto) 78.3 H 40.0-77.0 % Lymphocytes (%) (Auto) 15.8 L 21.0-51.0 % Monocytes (%) (Auto) 4.8 3.0-13.0 % Eosinophils (%) (Auto) 0.2 0.0-8.0 % Basophils (%) (Auto) 0.2 0.0-5.0 % Neutrophils # (Auto) 9.5 H 1.8-7.7 K/uL Lymphocytes # (Auto) 1.9 1.0-4.8 K/uL Monocytes # (Auto) 0.6 0.1-1.0 K/uL Eosinophils # (Auto) 0.02 0.00-0.70 K/uL Basophils # (Auto) 0.02 0.00-0.20 K/uL Absolute Immature Granulocyte (auto 0.08 0-1 K/uL Nucleated Red Blood Cells 0.0 0.0-0.19 % Chemistry Labs: Test 03/12/24 02:13 03/11/24 21:37 03/11/24 21:31 Range/Units Sodium Level 136 136-145 mmol/L Potassium Level 3.4 L 3.5-5.1 mmol/L Chloride Level 100 L 101-111 mmol/L Carbon Dioxide Level 23 21-32 mmol/L Blood Urea Nitrogen 7 7-18 mg/dL Creatinine 0.5 0.5-1.0 mg/dL Glomerular Filtration Rate Calc 126 >90 mL/min Random Glucose 91 70-105 mg/dL Hemoglobin A1c 5.9 4.0-6.0 % Estimated Average Glucose (eAG) 123 70-126 mg/dL Lactic Acid Level 1.5 0.8-2.5 mmol/L Total Calcium 8.4 L 8.5-10.1 mg/dL Phosphorus Level 3.4 2.5-4.9 mg/dL Magnesium Level 1.40 L 1.80-2.40 mg/dL B-Type Natriuretic Peptide 10 0-100 pg/mL Procalcitonin < 0.05 L 0.05-0.5 ng/mL Whole Blood Glucose 102 70-110 MG/DL Total Bilirubin 0.6 0.2-1.0 mg/dL Direct Bilirubin 0.1 0.0-0.3 mg/dL Aspartate Amino Transf (AST/SGOT) 43 H 10-37 U/L Alanine Aminotransferase (ALT/SGPT) 73 12-78 U/L Alkaline Phosphatase 63 50-136 U/L Troponin I High Sensitivity 5 4-50 ng/L Total Protein 7.3 6.0-8.3 g/dL Albumin 3.2 L 3.5-5.0 g/dL Lipase 33 16-77 U/L Serum Test, Qualitative NEGATIVE NEGATIVE Coagulation Labs: Test 03/12/24 02:13 Range/Units Prothrombin Time 11.6 9.6-11.6 SEC Prothromb Time International Ratio 1.04 0.85-1.15 Activated Partial Thromboplast Time 30.6 26.3-35.5 SEC Diagnostics / Radiology: [CT A/P shows fluid perisplenic fluid and fluid at the staple line, as can be expected 1wk s/p sleeve gastrectomy - No sign of leak or other abdominal pathology.] Impression and Plan: [ S/p robotic vertical sleeve gastrectomy, w signs and sxs of dehydrationwith an otherwise normal post operative course. 1. Will continue to monitor pain and treat as needed 2. Continue GI/DVT prophylaxis 3. Continue to replenish K per hospital protocol 4. Increase LR to 125ml/hr 5. Straight cath and bladder training for urinary retention as needed, no cannon for now 6. UA if not already done Continue all recommendations per primary team, currently no surgical indications or planned procedures. There is no need for surgical intervention at this time. Will sign off for now. Please let us know if condition changes and we can be of further assistance. Thank you for care of our mutual patient.] NOMI GAMBOA MD Mar 12, 2024 10:04
--- NOTE | 2024-03-12 10:12 | PN ---
Subjective Review of Systems CONTRACT RECRUITER - PROGRESS NOTE Date of Visit: Mar 12, 2024 Time of Visit: 10:06 Events since last encounter ABDOMINAL PAIN SUBSIDING Subjective PASSING GAS AND NO NAUSEA General: No Fever, No Chills, No Night Sweats, No Fatigue, No Malaise, No Appetite, No Other HEENT: No Head Aches, No Visual Changes, No Eye Pain, No Ear Pain, No Dysphasia, No Sinus Congestion, No Post Nasal Drip, No Sore Throat, No Other Pulmonary: No Dyspnea, No Cough, No Pleuritic Chest Pain, No Other Cardiovascular: No: Chest Pain, Palpitations, Orthopnea, Paroxysmal Noc. Dyspnea, Edema, Lt Headedness, Other Gastrointestinal: No: Nausea, Vomiting, Abdominal Pain, Diarrhea, Constipation, Melena, Hematochezia, Other Genitourinary: No Dysuria, No Frequency, No Incontinence, No Hematuria, No Retention, No Other Musculoskeletal: No: other, neck pain, shoulder pain, arm pain, back pain, hand pain, leg pain, foot pain Skin: No Urticaria, No Rash, No Other Neurological: No: Weakness, Numbness, Incoordination, Change in speech, Confusion, Seizures, Other Objective Vitals and I/O Vital Sign (Last 24 Hours) 03/12/24 03/12/24 04:00 08:00 Temp 98.4 Pulse 65 Resp 17 B/P (MAP) 126/72 Pulse Ox 96 O2 Delivery Room Air O2 Flow Rate 0 FiO2 21 Intake & Output (last 24hrs) 03/11/24 03/11/24 03/12/24 14:59 22:59 06:59 Intake Total 750.0 ml Balance 750.0 ml General: Alert, Oriented X3, Cooperative, No acute distress, Other (MORBIDLY OBESE) HEENT: Atraumatic, PERRLA, EOMI, Mucous membr. moist/pink Neck: Supple, No JVD Lungs: Clear to auscultation, Normal air movement, NL respiratory effort Heart: Regular rate, Regular rhythm, Normal S1, Normal S2, No murmurs Abdomen: Normal bowel sounds, Soft, Other (MULTIPLE SMALL INSCISIONS CLEAN DRY AND INTACT ) Extremities: No edema Skin: No rashes, No significant lesion Neuro: Normal speech, Strength at 5/5 X4 ext, Normal tone, Sensation intact, Cranial nerves 3-12 NL Psych/Mental Status: Mental status NL, Mood NL, Thoughts/Content NL Results RADIOLOGY: [] EKG: [] Laboratory Tests Test 03/11/24 21:31 03/11/24 21:37 03/12/24 02:13 03/12/24 06:17 White Blood Count 12.4 K/uL (4.8-10.8) H 12.1 K/uL (4.8-10.8) H Red Blood Count 4.30 MIL/uL (4.00-5.50) 3.62 MIL/uL (4.00-5.50) L Hemoglobin 12.4 g/dL (12.0-16.0) 10.6 g/dL (12.0-16.0) L 10.3 g/dL (12.0-16.0) L Hematocrit 38.5 % (36-48) 32.6 % (36-48) L 31.4 % (36-48) L Mean Corpuscular Volume 89.5 fL (79-99) 90.1 fL (79-99) Mean Corpuscular Hemoglobin 28.8 pg (27.0-33.0) 29.3 pg (27.0-33.0) Mean Corpuscular Hemoglobin Concent 32.2 g/dL (32.0-36.0) 32.5 g/dL (32.0-36.0) Red Cell Distribution Width 14.0 % (11.0-15.5) 14.1 % (11.0-15.5) Platelet Count 257 K/uL (130-400) 219 K/uL (130-400) Mean Platelet Volume 11.9 fL (7.5-10.5) H 11.2 fL (7.5-10.5) H Immature Granulocyte % (Auto) 0.6 % (0-1) 0.7 % (0-1) Neutrophils (%) (Auto) 68.1 % (40.0-77.0) 78.3 % (40.0-77.0) H Lymphocytes (%) (Auto) 23.2 % (21.0-51.0) 15.8 % (21.0-51.0) L Monocytes (%) (Auto) 7.2 % (3.0-13.0) 4.8 % (3.0-13.0) Eosinophils (%) (Auto) 0.6 % (0.0-8.0) 0.2 % (0.0-8.0) Basophils (%) (Auto) 0.3 % (0.0-5.0) 0.2 % (0.0-5.0) Neutrophils # (Auto) 8.4 K/uL (1.8-7.7) H 9.5 K/uL (1.8-7.7) H Lymphocytes # (Auto) 2.9 K/uL (1.0-4.8) 1.9 K/uL (1.0-4.8) Monocytes # (Auto) 0.9 K/uL (0.1-1.0) 0.6 K/uL (0.1-1.0) Eosinophils # (Auto) 0.08 K/uL (0.00-0.70) 0.02 K/uL (0.00-0.70) Basophils # (Auto) 0.04 K/uL (0.00-0.20) 0.02 K/uL (0.00-0.20) Absolute Immature Granulocyte (auto 0.08 K/uL (0-1) 0.08 K/uL (0-1) Nucleated Red Blood Cells 0.0 % (0.0-0.19) 0.0 % (0.0-0.19) Sodium Level 135 mmol/L (136-145) L 136 mmol/L (136-145) Potassium Level 3.4 mmol/L (3.5-5.1) L 3.4 mmol/L (3.5-5.1) L Chloride Level 97 mmol/L (101-111) L 100 mmol/L (101-111) L Carbon Dioxide Level 23 mmol/L (21-32) 23 mmol/L (21-32) Blood Urea Nitrogen 8 mg/dL (7-18) 7 mg/dL (7-18) Creatinine 0.6 mg/dL (0.5-1.0) 0.5 mg/dL (0.5-1.0) Glomerular Filtration Rate Calc 121 mL/min (>90) 126 mL/min (>90) Random Glucose 79 mg/dL (70-105) 91 mg/dL (70-105) Total Calcium 9.1 mg/dL (8.5-10.1) 8.4 mg/dL (8.5-10.1) L Total Bilirubin 0.6 mg/dL (0.2-1.0) Direct Bilirubin 0.1 mg/dL (0.0-0.3) Aspartate Amino Transf (AST/SGOT) 43 U/L (10-37) H Alanine Aminotransferase (ALT/SGPT) 73 U/L (12-78) Alkaline Phosphatase 63 U/L (50-136) Troponin I High Sensitivity 5 ng/L (4-50) Total Protein 7.3 g/dL (6.0-8.3) Albumin 3.2 g/dL (3.5-5.0) L Lipase 33 U/L (16-77) Serum Test, Qualitative NEGATIVE (NEGATIVE) Whole Blood Glucose 102 MG/DL (70-110) Prothrombin Time 11.6 SEC (9.6-11.6) Prothromb Time International Ratio 1.04 (0.85-1.15) Activated Partial Thromboplast Time 30.6 SEC (26.3-35.5) Hemoglobin A1c 5.9 % (4.0-6.0) Estimated Average Glucose (eAG) 123 mg/dL (70-126) Lactic Acid Level 1.5 mmol/L (0.8-2.5) Phosphorus Level 3.4 mg/dL (2.5-4.9) Magnesium Level 1.40 mg/dL (1.80-2.40) L B-Type Natriuretic Peptide 10 pg/mL (0-100) Procalcitonin < 0.05 ng/mL (0.05-0.5) L Medications Current Medications Hydromorphone HCl 1 mg ONCE ONCE IVP; Start 03/11/24 at 21:30; Stop 03/11/24 at 22:25; Status DC Lactated Ringer's 1,000 ml @ 0 mls/hr ONCE ONCE IV Last administered on 03/11/24at 21:53; Start 03/11/24 at 21:30; Stop 03/11/24 at 21:31; Status DC Fentanyl Citrate 50 mcg ONCE ONCE IVP Last administered on 03/11/24at 22:28; Start 03/11/24 at 22:00; Stop 03/11/24 at 22:01; Status DC Iohexol 35,000 mg STK-MED ONCE IV; Start 03/11/24 at 22:37; Stop 03/11/24 at 22:38; Status DC Lactated Ringer's 1,000 ml @ 125 mls/hr Q8H IV Last administered on 03/12/24at 02:00; Start 03/12/24 at 01:30; Stop 04/11/24 at 01:29 Acetaminophen 650 mg Q6H PRN RC; Start 03/12/24 at 01:30; Stop 04/11/24 at 01:29 Ondansetron HCl 4 mg Q6H PRN IV Last administered on 03/12/24at 01:51; Start 03/12/24 at 01:30; Stop 04/11/24 at 01:29 Hydralazine HCl 10 mg Q6H PRN IV; Start 03/12/24 at 01:30; Stop 04/11/24 at 01:29 Pantoprazole Sodium 40 mg DAILY IVP; Start 03/12/24 at 09:00; Stop 03/12/24 at 05:14; Status DC Hydromorphone HCl 0.5 mg Q4H PRN IVP Last administered on 03/12/24at 06:00; Start 03/12/24 at 01:30; Stop 03/17/24 at 01:29 Potassium Chloride 100 ml @ 50 mls/hr AD PRN IV; Start 03/12/24 at 01:30; Stop 04/11/24 at 01:29 Insulin Human Regular INSULIN SLIDING SCAL... ACHS SQ; Start 03/12/24 at 07:30; Stop 04/11/24 at 07:29 Albuterol Sulfate 2.5 mg [id number] PRN IH; Start 03/12/24 at 01:30; Stop 04/11/24 at 01:29 Pantoprazole Sodium 40 mg BID IVP Last administered on 03/12/24at 06:15; Start 03/12/24 at 05:30; Stop 04/11/24 at 08:59 Magnesium Sulfate 50 ml @ 0 mls/hr PROTOCOL PRN IV Last administered on 03/12/24at 06:16; Start 03/12/24 at 06:00; Stop 04/11/24 at 05:59 Potassium Chloride 100 ml @ 100 mls/hr AD PRN IV Last administered on 03/12/24at 06:15; Start 03/12/24 at 06:00; Stop 04/11/24 at 05:59 Acetaminophen/ Hydrocodone Bitart 15 ml Q3H PRN PO Last administered on 03/12/24at 10:03; Start 03/12/24 at 08:30; Stop 03/17/24 at 08:29 Assessment/Plan ASSESSMENT: THIS IS A 33 YR OLD WOMAN WITH HISTORY OF MORBID OBESITY / BM I> 40 FATTY LIVER ALLERGIC RHINITIS DM II HYPERLIPIDEMIA MIXED LUMBAR SPONDYLOSIS GERD MAYRA HX THYROID NODULE HX KIDNEY STONES MILD INTERMITTENT ASTHMA HYPERTENSIVE HEART DISEASE WITH DIASTOLIC DYSFN SHE IS S/P GASTRIC SLEEVE 03/05/2024 AND PRESENTED WITH ACUTE ABD PAIN, HYPOTENSION WITH DEHYDRATION LEFT PERISPLENIC COMPLEX FLUID COLLECTION ON CT - 03/11/2024 - POSSIBLE BLOOD PRODUCT COMPLEX FLUID COLLECTION ADJACENT TO STOMACH AT POST OP SITE 2.5X 10.4 CM ON ON - 03/11/2024 - POSSIBLE HEMATOMA SPLENIC INJURY, POST OPERATIVE MILD COMPLEX ASCITES LEUKOCYTOSIS HYPOKALEMIA ATHEROSCLEROSIS OF AORTA ON CT PLAN: UNCLEAR IF CT FINDINGS RELATED TO POST OP CHANGES VS ACUTE FINDINGS GNS CONSULTED FOR FURTHER RECOMMENDATIONS ADMITTED TO ICU FOR OBSERVATION DUE TO HYPOTENSION BUT HAS CORRECTED WITH 2 LITERS IVF AND HOLDING ANTI HYPERTENSIVES ANALGESICS AND ANTI EMETICS PRN CONT IVF HYDRATION SUPPLEMENT ELECTROLYTES AND MAGNESIUM NEEDED EMPIRIC ANTIBIOTICS FOR NOW INC DIET AND REHAB TOLERATED GLUCOMETER WITH ADDITIONAL INSULIN NEEDED DVT PROPHYLAXIS AND STRESS ULCER PROPHYLAXIS TRANSFER OUT OF ICU IF REMAINS HEMODYNAMICALLY STABLE THIS AFTERNOON UPDATED AND ANSWERED ALL QUESTIONS FOR PATIENT AND MOTHER AT BEDSIDE HECTOR ESTRADA MD Mar 12, 2024 10:12
[2024-03-12] MEDS: ZOSYN 3.375GM +NS 50ML IV SCH (11:00)
--- NOTE | 2024-03-12 12:01 | CONS ---
[facility] CONSULTATION NOTE Date Patient Seen: Mar 12, 2024 Time of Visit: 11:53 Supervising Physician: Dr. Barcenas Reason for Consultation: Hypotension with near syncope. Primary Care Physician: Dr. Hilda Guillaume Outpatient Specialists: [ ] Inpatient Consults: [ ] PROBLEM LIST: Near-syncope POA. Hypotension with recent hypotensive episode POA Postsurgical complication status post gastric sleeve on 03/05/2024, POA Left perisplenic complex fluid collection, POA, by CT on 03/11/2024 Complex fluid adjacent to the stomach at the postop site measuring 2.5 x 10.4 cm, POA, by CT on 03/11/2024 Suspected splenic injury secondary to above Leukocytosis, POA now resolved Hypokalemia, POA Diabetes mellitius type2 Hypertension Asthma MARJAN HPI: This is a 33-year-old morbidly obese female patient who has past medical history significant for hypertension, diabetes, hyperlipidemia, sleep apnea and asthma. Per the patient report, she underwent gastric sleeve surgery this past and was subsequently discharged home in stable condition. She was experiencing general surgical pain without any complications on yesterday at approximately 1:00 a.m. when she experienced severe abdominal pain. As the time went by, the patient reports feeling faint and went onto check her blood pressure and was noted that this was lower with through the course of the day, the patient reports that her pain subsided and her blood pressure improved. Because of this improvement, she did not seek any medical attention at the time. Unfortunately in the latter part of the day she again began experiencing abdominal pain, low blood pressure and feeling faint. At that time, the patient decided to come into the emergency department for further evaluation and management of her condition. During her stay in the emergency department, the patient also had another hypotensive episodes and feeling faint. On initial workup in the emergency department, initial blood pressure showed a 101/75, heart rate of 106 and a respiratory rate in the 20s. Pulse oximetry was stable above 92%. Laboratory data reviewed showed a initial WBC count of 12.4. H and H and platelet count were stable. Chemistry panel showed a sodium of 135, potassium 3.4, chloride of 97 and a CO2 of 23. Renal parameters with a BUN of eight, creatinine of 0.6 and a GFR of 121. The remaining chemistry parameters were unremarkable. There was no coagulopathy. Imaging obtained showed a complex fluid collection adjacent to the stomach postop site measuring approximately 2.5 x 10.4 cm possibly related to a hematoma recommendation were also to consider a splenic injury with postop bleed. There was a small complex ascites seen. Overnight, the staff nurse reports no other complaint. PAST MEDICAL HX: see above PAST SURGICAL HX: Tonsillectomy, Nasal surgery, Knee surgery, Bariatric surgery (gastric sleeve), Ovarian cyst removal SOCIAL HISTORY: No tobacco, ETOH, or illicit drug use Coded Allergies: No Known Allergies (Unverified Allergy, Unknown, 10/13/23) REVIEW OF SYSTEMS: 12 point ROS reviewed with patient. Pertinent positives mentioned above. Otherwise negative. PHYSICAL EXAM: GENERAL: alert, weak, awake oriented x 3. Obese. HEENT: EOMI, Sclera non icteric, moist mucosa NECK: Supple, no JVD, trachea midline LUNGS: Clear breath sounds bilaterally. No wheezes HEART: Regular rate and rhythm. Normal S1 and S2, without murmurs ABD: Abdomen soft, nontender. Bowel sounds present EXT: No clubbing cyanosis or edema NEURO: Alert and oriented to person, follows commands Vital Signs (last 8hr) Date Time Temp Pulse Resp B/P (MAP) Pulse Ox O2 Delivery O2 Flow Rate FiO2 03/12/24 08:00 98.4 65 17 126/72 96 Room Air 03/12/24 07:30 71 24 150/103 97 Room Air 03/12/24 07:00 66 18 126/62 95 Room Air 03/12/24 06:45 65 19 109/57 96 03/12/24 06:30 71 18 130/77 95 03/12/24 06:15 73 19 129/67 96 03/12/24 06:00 73 16 114/69 98 Room Air 03/12/24 05:45 75 22 128/81 97 03/12/24 05:30 88 23 106/31 96 03/12/24 05:15 69 19 134/78 97 03/12/24 05:00 69 52 131/72 98 Room Air 03/12/24 04:45 62 17 107/58 97 03/12/24 04:30 63 17 125/75 96 03/12/24 04:15 62 15 124/73 96 03/12/24 04:00 61 16 138/71 96 Room Air 03/12/24 04:00 98 Room Air* 0 21 LABS: Hematology Labs: Test 03/12/24 06:17 03/12/24 02:13 Range/Units Hemoglobin 10.3 L 12.0-16.0 g/dL Hematocrit 31.4 L 36-48 % White Blood Count 12.1 H 4.8-10.8 K/uL Red Blood Count 3.62 L 4.00-5.50 MIL/uL Mean Corpuscular Volume 90.1 79-99 fL Mean Corpuscular Hemoglobin 29.3 27.0-33.0 pg Mean Corpuscular Hemoglobin Concent 32.5 32.0-36.0 g/dL Red Cell Distribution Width 14.1 11.0-15.5 % Platelet Count 219 130-400 K/uL Mean Platelet Volume 11.2 H 7.5-10.5 fL Immature Granulocyte % (Auto) 0.7 0-1 % Neutrophils (%) (Auto) 78.3 H 40.0-77.0 % Lymphocytes (%) (Auto) 15.8 L 21.0-51.0 % Monocytes (%) (Auto) 4.8 3.0-13.0 % Eosinophils (%) (Auto) 0.2 0.0-8.0 % Basophils (%) (Auto) 0.2 0.0-5.0 % Neutrophils # (Auto) 9.5 H 1.8-7.7 K/uL Lymphocytes # (Auto) 1.9 1.0-4.8 K/uL Monocytes # (Auto) 0.6 0.1-1.0 K/uL Eosinophils # (Auto) 0.02 0.00-0.70 K/uL Basophils # (Auto) 0.02 0.00-0.20 K/uL Absolute Immature Granulocyte (auto 0.08 0-1 K/uL Nucleated Red Blood Cells 0.0 0.0-0.19 % Chemistry Labs: Test 03/12/24 11:02 03/12/24 02:13 03/11/24 21:31 Range/Units Whole Blood Glucose 96 70-110 MG/DL Sodium Level 136 136-145 mmol/L Potassium Level 3.4 L 3.5-5.1 mmol/L Chloride Level 100 L 101-111 mmol/L Carbon Dioxide Level 23 21-32 mmol/L Blood Urea Nitrogen 7 7-18 mg/dL Creatinine 0.5 0.5-1.0 mg/dL Glomerular Filtration Rate Calc 126 >90 mL/min Random Glucose 91 70-105 mg/dL Hemoglobin A1c 5.9 4.0-6.0 % Estimated Average Glucose (eAG) 123 70-126 mg/dL Lactic Acid Level 1.5 0.8-2.5 mmol/L Total Calcium 8.4 L 8.5-10.1 mg/dL Phosphorus Level 3.4 2.5-4.9 mg/dL Magnesium Level 1.40 L 1.80-2.40 mg/dL B-Type Natriuretic Peptide 10 0-100 pg/mL Procalcitonin < 0.05 L 0.05-0.5 ng/mL Total Bilirubin 0.6 0.2-1.0 mg/dL Direct Bilirubin 0.1 0.0-0.3 mg/dL Aspartate Amino Transf (AST/SGOT) 43 H 10-37 U/L Alanine Aminotransferase (ALT/SGPT) 73 12-78 U/L Alkaline Phosphatase 63 50-136 U/L Troponin I High Sensitivity 5 4-50 ng/L Total Protein 7.3 6.0-8.3 g/dL Albumin 3.2 L 3.5-5.0 g/dL Lipase 33 16-77 U/L Serum Test, Qualitative NEGATIVE NEGATIVE Coagulation Labs: Test 03/12/24 02:13 Range/Units Prothrombin Time 11.6 9.6-11.6 SEC Prothromb Time International Ratio 1.04 0.85-1.15 Activated Partial Thromboplast Time 30.6 26.3-35.5 SEC DIAGNOSTICS / RADIOLOGY RESULTS: [ ] PLAN 03/12/2024: The patient was admitted to the ICU and critical care team was consulted. During my visit, the patient was lying in bed and remains generally stable. The staff nurse reports no near syncopal episode overnight and blood pressure has maintained in stable range. Prior to my visit, the general surgeon came to visit with the patient and per his report, no plans for interventions at this time. The patient will continue on IV LR at 1:25 a.m. cc/hour. We will continue to monitor and replenish the the electrolytes if necessary. Currently, there is no need for critical care interventions. If okay with the primary team, I believe the patient can be transferred out of the ICU. We will sign off the case and if any need to intervene we will be glad to evaluate the patient. I truly appreciate the opportunity provided to participate in this patient's care. NEURO: Minimize central acting medications as possible. Fall Precautions. Well lighted room through the day and minimize interruptions through the night to prevent acute delirium. PULMONARY: Supplemental 02 as needed Titrate Fio2 to keep Spo2 > or = 90% DuoNebs and CPT as needed IS hourly while awake for pulmonary hygiene Out of bed to chair as tolerated CARDIOVASCULAR: Follow hemodynamics. Titrate vasopressor to keep MAP >65 or systolic blood pressure >95mmHg DIPS: None LINES: PIV's GI & NUTRITION: Continue nutritional support Aspirations precautions Prokinetic agents and laxatives as needed KIDNEYS & ELECTROLYTES: Strict monitoring of intake and output Daily weights Avoid nephrotoxic agents Monitor electrolytes and replace as needed Goal urine output of 30mL/hr or 0.5mL/kg/hr Urine output: [ ] Fluid Balance: [ ] ENDOCRINE: Maintain blood glucose between 100-180 at all times. Insulin sliding scale for blood glucose management INFECTIOUS DISEASE: Trend temperature. Irvin-culture if febrile. Micro: [ ] Antibiotics: [ ] HEMATOLOGY & COAGULATION: Monitor H&H. Keep Hgb > 7 Transfuse 1 unit of PRBC for Hgb < 7 Transfuse 1 pack of platelets of platelets < 20, 000 Watch for any signs and symptoms of bleeding SKIN: Pressure ulcer prevention per facility protocol Rehab: PT/OT Prophylaxis: GI: Protonix DVT: Lovenox Code Status: Full Resuscitation Disposition: Med-surg Other: Total patient care time exceeds 35 minutes excluding all procedures. Case was discussed and seen with my supervising physician. The above plan was formulated and agreed upon. YON KULKARNI NP Mar 12, 2024 12:01
[2024-03-12 14:21] LABS: HEMATOCRIT 30.1 % (36-48); MEAN CORPUSCULAR HEMOGLOBIN 28.8 pg (27.0-33.0); MEAN CORPUSCULAR HGB CONC 32.2 g/dL (32.0-36.0); MEAN CORPUSCULAR VOLUME 89.3 fL (79-99); RED BLOOD CELL COUNT(AUTO) 3.37 MIL/uL (4.00-5.50); RED CELL DISTRIBUTION WIDTH 14.2 % (11.0-15.5); WHITE BLOOD COUNT (AUTO) 9.3 K/uL (4.8-10.8)
--- NOTE | 2024-03-12 16:44 | NUR ---
DCP Pt awake, alert, oriented x3 lives with parent Susanne Keller [phone]. Pt is Independent and does not have any medical equipment. Anticipates discharge is for home. Addendum: 03/12/24 at 1647 by LILY GONZALES RN Amended: Links added.
[2024-03-12 19:19] LABS: HEMATOCRIT 28.4 % (36-48); MEAN CORPUSCULAR HEMOGLOBIN 29.1 pg (27.0-33.0); MEAN CORPUSCULAR HGB CONC 32.7 g/dL (32.0-36.0); MEAN CORPUSCULAR VOLUME 88.8 fL (79-99); RED BLOOD CELL COUNT(AUTO) 3.2 MIL/uL (4.00-5.50); RED CELL DISTRIBUTION WIDTH 14.2 % (11.0-15.5); WHITE BLOOD COUNT (AUTO) 10.5 K/uL (4.8-10.8)
[2024-03-13] VITALS (9 sets, daily range): BP systolic 104–137; BP diastolic 58–74; PULSE 72–86; RESP 16–20; TEMP 98–98.8; O2SAT 97–100
[2024-03-13 05:17] LABS: HEMATOCRIT 28.2 % (36-48); MEAN CORPUSCULAR HEMOGLOBIN 29.6 pg (27.0-33.0); MEAN CORPUSCULAR HGB CONC 32.6 g/dL (32.0-36.0); MEAN CORPUSCULAR VOLUME 90.7 fL (79-99); RED BLOOD CELL COUNT(AUTO) 3.11 MIL/uL (4.00-5.50); RED CELL DISTRIBUTION WIDTH 14.3 % (11.0-15.5); WHITE BLOOD COUNT (AUTO) 9.2 K/uL (4.8-10.8)
[2024-03-13 05:31] LABS: CREATININE 0.5 mg/dL (0.5-1.0); MAGNESIUM 1.7 mg/dL (1.80-2.40); POTASSIUM 3.3 mmol/L (3.5-5.1)
[2024-03-13] MEDS: MAGNESIUM 2GM PREMIX 50ML 50 ML IV PRN (06:50)
[2024-03-13] MEDS: PoTASSium chloRIDE 20MEQ/100ML 100 ML IV PRN (06:50)
[2024-03-13] MEDS: FLUoxetine HCL 20 MG CAPSULE PO SCH (08:47)
[2024-03-13] MEDS: ENOXAPARIN SODIUM 40 MG/0.4 ML SYRINGE SQ SCH (08:54)
--- NOTE | 2024-03-13 09:22 | PN ---
Subjective Review of Systems PROGRESS NOTE Date of Visit: Mar 13, 2024 Time of Visit: 09:22 Events since last encounter OVERALL FEELS BETTER OVERNIGHT Subjective PASSING GAS AND NO NAUSEA General: No Fever, No Chills, No Night Sweats, No Fatigue, No Malaise, No Appetite, No Other HEENT: No Head Aches, No Visual Changes, No Eye Pain, No Ear Pain, No Dysphasia, No Sinus Congestion, No Post Nasal Drip, No Sore Throat, No Other Pulmonary: No Dyspnea, No Cough, No Pleuritic Chest Pain, No Other Cardiovascular: No: Chest Pain, Palpitations, Orthopnea, Paroxysmal Noc. Dyspnea, Edema, Lt Headedness, Other Gastrointestinal: Abdominal Pain (BUT IMPROVED); No: Nausea, Vomiting, Diarrhea, Constipation, Melena, Hematochezia, Other Genitourinary: No Dysuria, No Frequency, No Incontinence, No Hematuria, No Retention, No Other Musculoskeletal: other; No: neck pain, shoulder pain, arm pain, back pain, hand pain, leg pain, foot pain Skin: No Urticaria, No Rash, No Other Neurological: No: Weakness, Numbness, Incoordination, Change in speech, Confusion, Seizures, Other Objective Vitals and I/O Vital Sign (Last 24 Hours) 03/12/24 03/13/24 19:40 08:13 Temp 98.8 Pulse 86 Resp 16 B/P (MAP) 104/64 Pulse Ox 96 O2 Delivery Room Air O2 Flow Rate 0 FiO2 21 Intake & Output (last 24hrs) 03/12/24 03/12/24 03/13/24 15:00 23:00 07:00 Intake Total 877.5 ml 150.0 ml Balance 877.5 ml 150.0 ml General: Alert, Oriented X3, Cooperative, No acute distress HEENT: Atraumatic, PERRLA, EOMI, Mucous membr. moist/pink Neck: Supple, No JVD Lungs: Clear to auscultation, Normal air movement, NL respiratory effort Heart: Regular rate, Regular rhythm, Normal S1, Normal S2 Abdomen: Normal bowel sounds, Soft, Other (MILD DIFFUSE TENDERNESS) Extremities: No edema Skin: No significant lesion Neuro: Normal speech, Strength at 5/5 X4 ext, Cranial nerves 3-12 NL Psych/Mental Status: Mental status NL, Mood NL, Thoughts/Content NL Results RADIOLOGY: [] EKG: [] Laboratory Tests Test 03/12/24 11:02 03/12/24 14:18 03/12/24 16:39 03/12/24 19:07 Whole Blood Glucose 96 MG/DL (70-110) 100 MG/DL (70-110) White Blood Count 9.3 K/uL (4.8-10.8) 10.5 K/uL (4.8-10.8) Red Blood Count 3.37 MIL/uL (4.00-5.50) L 3.20 MIL/uL (4.00-5.50) L Hemoglobin 9.7 g/dL (12.0-16.0) L 9.3 g/dL (12.0-16.0) L Hematocrit 30.1 % (36-48) L 28.4 % (36-48) L Mean Corpuscular Volume 89.3 fL (79-99) 88.8 fL (79-99) Mean Corpuscular Hemoglobin 28.8 pg (27.0-33.0) 29.1 pg (27.0-33.0) Mean Corpuscular Hemoglobin Concent 32.2 g/dL (32.0-36.0) 32.7 g/dL (32.0-36.0) Red Cell Distribution Width 14.2 % (11.0-15.5) 14.2 % (11.0-15.5) Platelet Count 187 K/uL (130-400) 184 K/uL (130-400) Mean Platelet Volume 11.1 fL (7.5-10.5) H 11.6 fL (7.5-10.5) H Nucleated Red Blood Cells 0.0 % (0.0-0.19) 0.0 % (0.0-0.19) Test 03/12/24 20:21 03/12/24 23:57 03/13/24 05:12 03/13/24 05:51 Whole Blood Glucose 76 MG/DL (70-110) 72 MG/DL (70-110) Potassium Level 3.7 mmol/L (3.5-5.1) 3.3 mmol/L (3.5-5.1) L White Blood Count 9.2 K/uL (4.8-10.8) Red Blood Count 3.11 MIL/uL (4.00-5.50) L Hemoglobin 9.2 g/dL (12.0-16.0) L Hematocrit 28.2 % (36-48) L Mean Corpuscular Volume 90.7 fL (79-99) Mean Corpuscular Hemoglobin 29.6 pg (27.0-33.0) Mean Corpuscular Hemoglobin Concent 32.6 g/dL (32.0-36.0) Red Cell Distribution Width 14.3 % (11.0-15.5) Platelet Count 168 K/uL (130-400) Mean Platelet Volume 11.8 fL (7.5-10.5) H Nucleated Red Blood Cells 0.0 % (0.0-0.19) Sodium Level 137 mmol/L (136-145) Chloride Level 103 mmol/L (101-111) Carbon Dioxide Level 28 mmol/L (21-32) Blood Urea Nitrogen 6 mg/dL (7-18) L Creatinine 0.5 mg/dL (0.5-1.0) Glomerular Filtration Rate Calc 126 mL/min (>90) Random Glucose 75 mg/dL (70-105) Total Calcium 8.2 mg/dL (8.5-10.1) L Magnesium Level 1.70 mg/dL (1.80-2.40) L Medications Current Medications Hydromorphone HCl 1 mg ONCE ONCE IVP; Start 03/11/24 at 21:30; Stop 03/11/24 at 22:25; Status DC Lactated Ringer's 1,000 ml @ 0 mls/hr ONCE ONCE IV Last administered on 03/11/24at 21:53; Start 03/11/24 at 21:30; Stop 03/11/24 at 21:31; Status DC Fentanyl Citrate 50 mcg ONCE ONCE IVP Last administered on 03/11/24at 22:28; Start 03/11/24 at 22:00; Stop 03/11/24 at 22:01; Status DC Iohexol 35,000 mg STK-MED ONCE IV; Start 03/11/24 at 22:37; Stop 03/11/24 at 22:38; Status DC Lactated Ringer's 1,000 ml @ 125 mls/hr Q8H IV Last administered on 03/13/24at 08:57; Start 03/12/24 at 01:30; Stop 04/11/24 at 01:29 Acetaminophen 650 mg Q6H PRN RC; Start 03/12/24 at 01:30; Stop 04/11/24 at 01:29 Ondansetron HCl 4 mg Q6H PRN IV Last administered on 03/12/24at 01:51; Start 03/12/24 at 01:30; Stop 04/11/24 at 01:29 Hydralazine HCl 10 mg Q6H PRN IV; Start 03/12/24 at 01:30; Stop 04/11/24 at 01:29 Pantoprazole Sodium 40 mg DAILY IVP; Start 03/12/24 at 09:00; Stop 03/12/24 at 05:14; Status DC Hydromorphone HCl 0.5 mg Q4H PRN IVP Last administered on 03/12/24at 06:00; Start 03/12/24 at 01:30; Stop 03/17/24 at 01:29 Potassium Chloride 100 ml @ 50 mls/hr AD PRN IV Last administered on 03/13/24at 06:50; Start 03/12/24 at 01:30; Stop 04/11/24 at 01:29 Insulin Human Regular INSULIN SLIDING SCAL... ACHS SQ; Start 03/12/24 at 07:30; Stop 04/11/24 at 07:29 Albuterol Sulfate 2.5 mg [id number] PRN IH; Start 03/12/24 at 01:30; Stop 04/11/24 at 01:29 Pantoprazole Sodium 40 mg BID IVP Last administered on 03/13/24at 08:47; Start 03/12/24 at 05:30; Stop 03/13/24 at 09:15; Status DC Magnesium Sulfate 50 ml @ 0 mls/hr PROTOCOL PRN IV Last administered on 03/12/24at 06:16; Start 03/12/24 at 06:00; Stop 03/12/24 at 10:20; Status DC Potassium Chloride 100 ml @ 100 mls/hr AD PRN IV Last administered on 03/13/24at 00:41; Start 03/12/24 at 06:00; Stop 04/11/24 at 05:59 Acetaminophen/ Hydrocodone Bitart 15 ml Q3H PRN PO Last administered on 03/13/24at 06:49; Start 03/12/24 at 08:30; Stop 03/17/24 at 08:29 Magnesium Sulfate 50 ml @ 0 mls/hr PROTOCOL PRN IV Last administered on 03/13/24at 06:50; Start 03/12/24 at 10:30; Stop 04/11/24 at 10:29 Fluoxetine HCl 20 mg DAILY PO Last administered on 03/13/24at 08:47; Start 03/13/24 at 09:00; Stop 04/12/24 at 08:59 Piperacillin Sod/ Tazobactam Sod 3.375 gm Q8H IV Last administered on 03/13/24at 02:22; Start 03/12/24 at 10:30; Stop 03/22/24 at 10:29 Enoxaparin Sodium 40 mg DAILY SQ Last administered on 03/13/24at 08:54; Start 03/13/24 at 09:00; Stop 04/12/24 at 08:59 Pantoprazole Sodium 40 mg DAILY PO; Start 03/14/24 at 09:00; Stop 04/13/24 at 08:59 Magnesium Oxide 400 mg BID PO; Start 03/13/24 at 09:30; Stop 04/12/24 at 09:29 Hydralazine HCl 10 mg Q4H4 PRN PO; Start 03/13/24 at 09:30; Stop 04/12/24 at 09:29; Status UNV Assessment/Plan ASSESSMENT: THIS IS A 33 YR OLD WOMAN WITH HISTORY OF MORBID OBESITY / BM I> 40 FATTY LIVER ALLERGIC RHINITIS DM II HYPERLIPIDEMIA MIXED LUMBAR SPONDYLOSIS GERD MAYRA HX THYROID NODULE HX KIDNEY STONES MILD INTERMITTENT ASTHMA HYPERTENSIVE HEART DISEASE WITH DIASTOLIC DYSFN SHE IS S/P GASTRIC SLEEVE 03/05/2024 AND PRESENTED WITH ACUTE ABD PAIN, HYPOTENSION WITH DEHYDRATION LEFT PERISPLENIC COMPLEX FLUID COLLECTION ON CT - 03/11/2024 - POSSIBLE BLOOD PRODUCT COMPLEX FLUID COLLECTION ADJACENT TO STOMACH AT POST OP SITE 2.5X 10.4 CM ON ON - 03/11/2024 - POSSIBLE HEMATOMA SPLENIC INJURY, POST OPERATIVE MILD COMPLEX ASCITES LEUKOCYTOSIS HYPOKALEMIA ATHEROSCLEROSIS OF AORTA ON CT PLAN: NO SURGICAL INTERVENTION THOUGHT NEEDED BY GNS CONT SURVEILLANCE AND WILL REPEAT CT TOMORROW HAS BEEN TRANSFERRED TO [facility] IVF HYDRATION INCREASED TO FULL LIQUIS DIET SUPPLEMENT ELECTROLYTES AND MAGNESIUM NEEDED CONT ANTIBIOTICS W ZOSYN FOR NOW GLUCOMETER WITH ADDITIONAL INSULIN NEEDED DVT PROPHYLAXIS WITH LOVENOX AND STRESS ULCER PROPHYLAXIS W PPI ENCOURAGD AMBULATION HECTOR ESTRADA MD Mar 13, 2024 09:22
[2024-03-13] MEDS ORDERED: hydrALAZine HCL 10 MG TABLET PO PRN (09:30)
[2024-03-13] MEDS ORDERED: miDODRine HCL 5 MG TABLET PO PRN (10:30)
[2024-03-13] MEDS: MAGNESIUM OXIDE 400 MG TABLET PO SCH (10:59)
--- NOTE | 2024-03-13 11:15 | NUR ---
Nutrition consult per Pt bariatric Reviewed labs, notes, and medications. Recent admin 03/05/24, received RD education 03/05/24, on FLD bariatric diet, IV abx, IV fluid, anti-depressant, hypokalemia 3.3, hypocalcemia 8.2, hypomagnesemia 1.70, elevated AST, A1C WNL per chart review. Wt via standing scale, last BM 03/11/24, incision wound, no edema, well nourished per nursing. Pt reported NKFA, 50%PO intake, denied N/V, has MVI at home, good appetite, 2 bm since procedure, last BM 03/10/24, has RD educational material, still has PCP appointment in [place], spoke to global coordinator, had some apple juice provided by a nurse due to help with a medication taste, agreeable to receiving crystal light bid, reported she knew to dilute any fruit juice. registration clerk notified RD and supervisor cereal about seeing apple juice on tray. RD filled out incident report and notified FNS director. RD reviewed educational material for post-op diet recommendations. Pt was informed of importance of lifelong vitamin/mineral supplementation, choosing protein first during meals (pt was educated on higher protein requirements), choosing low calorie, sugar free, carbonated free and caffeine beverages. RD also informed pt on lifelong commitment to exercise and dietary recommendations for optimal success post surgery. RD encouraged getting blood work every 3 to 6 months, including B-vitamins, Pt verbalized understanding. RD informed Pt on moving around after procedure to prevent DVT, Pt verbalized understanding. Pt was encouraged to contact RD as questions arise and to attend support groups. Pt will benefit from outpatient bariatric dietitian follow up post procedure. Pt to follow up with PCP for labs. Recommendations: -Continue phase 2 bariatric diet for 1 week -Monitor electrolytes -Replenish electrolytes per protocol -Monitor diet tolerance -Monitor BM -if no BM for >3 days consider stool softener if medically feasible -Monitor PO intake -Monitor wts -Reweigh as able -Order vit. D, vit. b12, vit b1 , vit b 6 labs to rule out deficiencies -Provide MVI chewable QD -Recommend Pt to follow up with PCP -Monitor goals of care RD available for consult per protocol Addendum: 03/13/24 at [address] Amended: Links added.
[2024-03-13] MEDS ORDERED: HYDROcod/acetaMINOPHEN 7.5/325 MG 15 ML UDCUP PO PRN (11:30)
[2024-03-13] MEDS: GABApentin 100 MG CAPSULE PO SCH (13:46)
[2024-03-13] MEDS: acetaMINOPHEN 325 MG/10.15ML UDCUP PO SCH (13:46)
[2024-03-13] MEDS ORDERED: acetaMINOPHEN 325 MG TAB PO PRN (18:00)
[2024-03-13] MEDS ORDERED: acetaMINOPHEN 325 MG TAB PO SCH (18:30)
[2024-03-14] VITALS (7 sets, daily range): BP systolic 108–126; BP diastolic 51–82; PULSE 75–87; RESP 17–20; TEMP 97.8–98.8; O2SAT 97
[2024-03-14 04:42] LABS: HEMATOCRIT 25.5 % (36-48); MEAN CORPUSCULAR HEMOGLOBIN 29.1 pg (27.0-33.0); MEAN CORPUSCULAR HGB CONC 32.5 g/dL (32.0-36.0); MEAN CORPUSCULAR VOLUME 89.5 fL (79-99); RED BLOOD CELL COUNT(AUTO) 2.85 MIL/uL (4.00-5.50); RED CELL DISTRIBUTION WIDTH 14.2 % (11.0-15.5); WHITE BLOOD COUNT (AUTO) 8.2 K/uL (4.8-10.8)
[2024-03-14 04:50] LABS: CREATININE 0.5 mg/dL (0.5-1.0); MAGNESIUM 1.7 mg/dL (1.80-2.40); POTASSIUM 3.5 mmol/L (3.5-5.1)
[2024-03-14] MEDS ORDERED: IOHEXOL-350 75 ML VIAL IV ONE (05:32)
[2024-03-14] MEDS: DEXTROSE 50%-WATER 50 ML DISP.SYRIN IV ONE (05:46)
[2024-03-14] MEDS ORDERED: DEXTROSE 50%-WATER 50 ML DISP.SYRIN IV PRN (06:00)
[2024-03-14] MEDS ORDERED: GLUCAGON 1MG KIT 1 MG ML IM PRN (06:00)
[2024-03-14] MEDS: GABApentin 100 MG CAPSULE PO SCH (09:56)
[2024-03-14] MEDS: PANTOPrazole 40 MG TAB DR PO SCH ×2 (09:56→21:23)
--- NOTE | 2024-03-14 10:25 | HMCIMG ---
CT ABDOMEN WITH CONTRAST. CT PELVIS WITH CONTRAST INDICATION: Fluid collections follow up TECHNIQUE: Routine transaxial images using 5 mm slice thickness were obtained after the intravenous infusion of 75 mL of Omnipaque 350 without adverse effects. Oral contrast was not administered. Rectal contrast was not administered. Coronal and sagittal reformatted images acquired for interpretation. CT was performed with one or more of the following dose reduction techniques: Automated exposure control, adjustment of the mA and/or kV according to patient size, or use of iterative reconstruction technique. COMPARISON: 03/11/2024 FINDINGS/IMPRESSION: Unchanged small-volume complex abdominopelvic free fluid of splenic origin, without any new fluid. Remainder of the study is unchanged, including stable nonobstructing bilateral nephrolithiasis, left ovarian cyst, and left lung base atelectasis.
[2024-03-14 10:27] LABS: HEMATOCRIT 27.3 % (36-48)
--- NOTE | 2024-03-14 14:51 | PN ---
Subjective Review of Systems PROGRESS NOTE Date of Visit: Mar 14, 2024 Time of Visit: 14:48 Events since last encounter OVERALL FEELS BETTER Subjective PASSING GAS AND NO NAUSEA General: No Fever, No Chills, No Night Sweats, No Fatigue, No Malaise, No Appetite, No Other HEENT: No Head Aches, No Visual Changes, No Eye Pain, No Ear Pain, No Dysp hasia, No Sinus Congestion, No Post Nasal Drip, No Sore Throat, No Other Pulmonary: No Dyspnea, No Cough, No Pleuritic Chest Pain, No Other Cardiovascular: No: Chest Pain, Palpitations, Orthopnea, Paroxysmal Noc. Dyspnea, Edema, Lt Headedness, Other Gastrointestinal: No: Nausea, Vomiting, Abdominal Pain, Diarrhea, Constipation, Melena, Hematochezia, Other Genitourinary: No Dysuria, No Frequency, No Incontinence, No Hematuria, No Retention, No Other Musculoskeletal: other (LEFT SIDED FLANK AND LATERAL CHEST WALL PAIN WITH DEEP INSPIRATION R CERTAIN MOVEMENTS); No: neck pain, shoulder pain, arm pain, back pain, hand pain, leg pain, foot pain Skin: No Urticaria, No Rash, No Other Neurological: No: Weakness, Numbness, Incoordination, Change in speech, Confusion, Seizures, Other Objective Vitals and I/O Vital Sign (Last 24 Hours) 03/14/24 03/14/24 08:00 11:00 Temp 98.4 Pulse 75 Resp 17 B/P (MAP) 123/74 Pulse Ox 97 O2 Delivery Room Air O2 Flow Rate 0 FiO2 21 Intake & Output (last 24hrs) 03/13/24 03/13/24 03/14/24 15:00 23:00 07:00 Intake Total 480 ml 240 ml Output Total 600 ml 250 ml Balance 480 ml -360 ml -250 ml General: Alert, Oriented X3, Cooperative, No acute distress HEENT: Atraumatic, PERRLA, EOMI, Mucous membr. moist/pink Neck: Supple, No JVD Lungs: Clear to auscultation, Normal air movement, NL respiratory effort Heart: Regular rate, Regular rhythm, Normal S1, Normal S2 Abdomen: Normal bowel sounds, Soft, Other (MILD DIFFUSE TENDERNESS) Extremities: No edema Skin: No significant lesion Neuro: Normal speech, Strength at 5/5 X4 ext, Cranial nerves 3-12 NL Psych/Mental Status: Mental status NL, Mood NL, Thoughts/Content NL Results RADIOLOGY: [] EKG: [] Laboratory Tests Test 03/13/24 16:05 03/13/24 19:28 03/14/24 04:23 03/14/24 04:57 Whole Blood Glucose 77 MG/DL (70-110) 81 MG/DL (70-110) 63 MG/DL (70-110) L White Blood Count 8.2 K/uL (4.8-10.8) Red Blood Count 2.85 MIL/uL (4.00-5.50) L Hemoglobin 8.3 g/dL (12.0-16.0) L Hematocrit 25.5 % (36-48) L Mean Corpuscular Volume 89.5 fL (79-99) Mean Corpuscular Hemoglobin 29.1 pg (27.0-33.0) Mean Corpuscular Hemoglobin Concent 32.5 g/dL (32.0-36.0) Red Cell Distribution Width 14.2 % (11.0-15.5) Platelet Count 176 K/uL (130-400) Mean Platelet Volume 11.9 fL (7.5-10.5) H Nucleated Red Blood Cells 0.0 % (0.0-0.19) Sodium Level 140 mmol/L (136-145) Potassium Level 3.5 mmol/L (3.5-5.1) Chloride Level 104 mmol/L (101-111) Carbon Dioxide Level 29 mmol/L (21-32) Blood Urea Nitrogen 6 mg/dL (7-18) L Creatinine 0.5 mg/dL (0.5-1.0) Glomerular Filtration Rate Calc 126 mL/min (>90) Random Glucose 68 mg/dL (70-105) L Total Calcium 8.2 mg/dL (8.5-10.1) L Magnesium Level 1.70 mg/dL (1.80-2.40) L Test 03/14/24 10:22 03/14/24 10:57 Hemoglobin 9.0 g/dL (12.0-16.0) L Hematocrit 27.3 % (36-48) L Whole Blood Glucose 85 MG/DL (70-110) Medications Current Medications Hydromorphone HCl 1 mg ONCE ONCE IVP; Start 03/11/24 at 21:30; Stop 03/11/24 at 22:25; Status DC Lactated Ringer's 1,000 ml @ 0 mls/hr ONCE ONCE IV Last administered on at 21:53; Start 03/11/24 at 21:30; Stop 03/11/24 at 21:31; Status DC Fentanyl Citrate 50 mcg ONCE ONCE IVP Last administered on 03/11/24at 22:28; Start 03/11/24 at 22:00; Stop 03/11/24 at 22:01; Status DC Iohexol 35,000 mg STK-MED ONCE IV; Start 03/11/24 at 22:37; Stop 03/11/24 at 22:38; Status DC Lactated Ringer's 1,000 ml @ 75 mls/hr [id number] IV Last administered on 03/14at 10:08; Start 03/12/24 at 01:30; Stop 04/11/24 at 01:29 Acetaminophen 650 mg Q6H PRN RC; Start 03/12/24 at 01:30; Stop 04/11/24 at 01:29 Ondansetron HCl 4 mg Q6H PRN IV Last administered on 03/12/24at 01:51; Start 03/12/24 at 01:30; Stop 04/11/24 at 01:29 Hydralazine HCl 10 mg Q6H PRN IV; Start 03/12/24 at 01:30; Stop 03/13/24 at 09:22; Status DC Pantoprazole Sodium 40 mg DAILY IVP; Start 03/12/24 at 09:00; Stop 03/12/24 at 05:14; Status DC Hydromorphone HCl 0.5 mg Q4H PRN IVP Last administered on 03/12/24at 06:00; Start 03/12/24 at 01:30; Stop 03/13/24 at 10:05; Status DC Potassium Chloride 100 ml @ 50 mls/hr AD PRN IV Last administered on 03/14/24at 14:34; Start 03/12/24 at 01:30; Stop 04/11/24 at 01:29 Insulin Human Regular INSULIN SLIDING SCAL... ACHS SQ; Start 03/12/24 at 07:30; Stop 04/11/24 at 07:29 Albuterol Sulfate 2.5 mg [id number] PRN IH; Start 03/12/24 at 01:30; Stop 04/11/24 at 01:29 Pantoprazole Sodium 40 mg BID IVP Last administered on 03/13/24at 08:47; Start 03/12/24 at 05:30; Stop 03/13/24 at 09:15; Status DC Magnesium Sulfate 50 ml @ 0 mls/hr PROTOCOL PRN IV Last administered on 03/12/24at 06:16; Start 03/12/24 at 06:00; Stop 03/12/24 at 10:20; Status DC Potassium Chloride 100 ml @ 100 mls/hr AD PRN IV Last administered on 03/13/24 at 00:41; Start 03/12/24 at 06:00; Stop 04/11/24 at 05:59 Acetaminophen/ Hydrocodone Bitart 15 ml Q3H PRN PO Last administered on 03/13/24at 06:49; Start 03/12/24 at 08:30; Stop 03/13/24 at 10:05; Status DC Magnesium Sulfate 50 ml @ 0 mls/hr PROTOCOL PRN IV Last administered on 03/13/24at 06:50; Start 03/12/24 at 10:30; Stop 04/11/24 at 10:29 Fluoxetine HCl 20 mg DAILY PO Last administered on 03/14/24at 09:55; Start 03/13/24 at 09:00; Stop 04/12/24 at 08:59 Piperacillin Sod/ Tazobactam Sod 3.375 gm Q8H IV Last administered on 03/14/24at 10:07; Start 03/12/24 at 10:30; Stop 03/22/24 at 10:29 Enoxaparin Sodium 40 mg DAILY SQ Last administered on 03/13/24at 08:54; Start 03/13/24 at 09:00; Stop 04/12/24 at 08:59 Pantoprazole Sodium 40 mg DAILY PO Last administered on 03/14/24at 09:56; Start 03/14/24 at 09:00; Stop 04/13/24 at 08:59 Magnesium Oxide 400 mg BID PO Last administered on 03/14/24at 09:56; Start 03/13/24 at 09:30; Stop 04/12/24 at 09:29 Hydralazine HCl 10 mg Q4H4 PRN PO; Start 03/13/24 at 09:30; Stop 04/12/24 at 09:29 Acetaminophen/ Hydrocodone Bitart 10 ml Q3H PRN PO; Start 03/13/24 at 11:30; Stop 03/18/24 at 11:29 Midodrine 5 mg TID PRN PO; Start 03/13/24 at 10:30; Stop 04/12/24 at 10:29 Gabapentin 100 mg TID PO Last administered on 03/13/24at 22:22; Start 03/13/24 at 14:00; Stop 03/14/24 at 08:54; Status DC Acetaminophen 650 mg QID PO Last administered on 03/13/24at 13:46; Start 03/13/24 at 13:00; Stop 03/13/24 at 17:43; Status DC Acetaminophen 650 mg Q4H PRN PO; Start 03/13/24 at 18:00; Stop 04/12/24 at 17:59 Acetaminophen 650 mg Q4H PO; Start 03/13/24 at 18:30; Stop 03/13/24 at 18:24; Status DC Iohexol 75 ml STK-MED ONCE IV; Start 03/14/24 at 05:32; Stop 03/14/24 at 05:33; Status DC Dextrose 50 ml AD PRN IV; Start 03/14/24 at 06:00; Stop 04/13/24 at 05:59 Glucagon 1 mg AD PRN IM; Start 03/14/24 at 06:00; Stop 04/13/24 at 05:59 Dextrose 50 ml STK-MED ONCE IV Last administered on 03/14/24at 05:46; Start 03/14/24 at 05:35; Stop 03/14/24 at 05:35; Status DC Gabapentin 200 mg TID PO Last administered on 03/14/24at 14:35; Start 03/14/24 at 09:00; Stop 04/13/24 at 08:59 Assessment/Plan ASSESSMENT: THIS IS A 33 YR OLD WOMAN WITH HISTORY OF MORBID OBESITY / BM I> 40 FATTY LIVER ALLERGIC RHINITIS DM II HYPERLIPIDEMIA MIXED LUMBAR SPONDYLOSIS GERD MAYRA HX THYROID NODULE HX KIDNEY STONES MILD INTERMITTENT ASTHMA HYPERTENSIVE HEART DISEASE WITH DIASTOLIC DYSFN SHE IS S/P GASTRIC SLEEVE 03/05/2024 AND PRESENTED WITH ACUTE ABD PAIN, HYPOTENSION WITH DEHYDRATION LEFT PERISPLENIC COMPLEX FLUID COLLECTION ON CT - 03/11/2024 - POSSIBLE BLOOD PRODUCT COMPLEX FLUID COLLECTION ADJACENT TO STOMACH AT POST OP SITE 2.5X 10.4 CM ON ON - 03/11/2024 - POSSIBLE HEMATOMA SPLENIC INJURY, POST OPERATIVE MILD COMPLEX ASCITES LEUKOCYTOSIS HYPOKALEMIA ATHEROSCLEROSIS OF [place] ON CT PLAN: REPEAT CT DONE TODAY - -APPEARS TO HAVE NO CHANGES WEANING IVF HYDRATION TOLERATING FULL LIQUID DIET INCREASE GABAPENTIN FOR POST OP PAIN SUPPLEMENT ELECTROLYTES AND MAGNESIUM NEEDED CONT ANTIBIOTICS W ZOSYN GLUCOMETER WITH ADDITIONAL INSULIN NEEDED DVT PROPHYLAXIS WITH LOVENOX AND STRESS ULCER PROPHYLAXIS W PPI CONT INCREASING AMBULATION HECTOR ESTRADA MD Mar 14, 2024 14:51
[2024-03-14] MEDS: SENNOSIDES 8.6 MG TABLET PO SCH (21:23)
[2024-03-15] VITALS (11 sets, daily range): BP systolic 118–142; BP diastolic 60–79; PULSE 72–91; RESP 18–20; TEMP 98–98.6; O2SAT 97–98
[2024-03-15 04:09] LABS: HEMATOCRIT 26.6 % (36-48); MEAN CORPUSCULAR HEMOGLOBIN 29.2 pg (27.0-33.0); MEAN CORPUSCULAR HGB CONC 32.3 g/dL (32.0-36.0); MEAN CORPUSCULAR VOLUME 90.2 fL (79-99); NUCLEATED RED BLOOD CELLS 0.3 % (0.0-0.19); RED BLOOD CELL COUNT(AUTO) 2.95 MIL/uL (4.00-5.50); RED CELL DISTRIBUTION WIDTH 14.6 % (11.0-15.5); WHITE BLOOD COUNT (AUTO) 7.9 K/uL (4.8-10.8)
[2024-03-15 04:21] LABS: CREATININE 0.4 mg/dL (0.5-1.0); POTASSIUM 3.1 mmol/L (3.5-5.1)
[2024-03-15] MEDS: polyETHYLene GLYCol 3350 17 GM POWD.PACK PO SCH (09:33)
[2024-03-15] MEDS: PoTASSium chloRIDE 20MEQ ER 20 MEQ ERTAB PO SCH (10:38)
--- NOTE | 2024-03-15 11:09 | NUR ---
Transfer- Patient made aware of transfer to Med/Surg floor. Report given to MORIS Galan on Med/Surg floor. All questions/concerns answered. Patient is to go to room 326. Patient's personal belongings verified to be back with patient.
--- NOTE | 2024-03-15 12:49 | PN ---
Subjective Review of Systems PROGRESS NOTE Date of Visit: Mar 15, 2024 Time of Visit: 12:45 Events since last encounter PATIENT FEELING BETTER Subjective HAS HAD 2 BOWEL MOVEMENTS General: No Fever, No Chills, No Night Sweats, No Fatigue, No Malaise, No Appetite, No Other HEENT: No Head Aches, No Visual Changes, No Eye Pain, No Ear Pain, No Dy sphasia, No Sinus Congestion, No Post Nasal Drip, No Sore Throat, No Other Pulmonary: No Dyspnea, No Cough, No Pleuritic Chest Pain, No Other Cardiovascular: No: Chest Pain, Palpitations, Orthopnea, Paroxysmal Noc. Dyspnea, Edema, Lt Headedness, Other Gastrointestinal: No: Nausea, Vomiting, Abdominal Pain, Diarrhea, Constipation, Melena, Hematochezia, Other Genitourinary: No Dysuria, No Frequency, No Incontinence, No Hematuria, No Retention, No Other Musculoskeletal: other (LEFT FLANK AND CHEST WALL PAIN IS BETTER); No: neck pain, shoulder pain, arm pain, back pain, hand pain, leg pain, foot pain Skin: No Urticaria, No Rash, No Other Neurological: No: Weakness, Numbness, Incoordination, Change in speech, Confusion, Seizures, Other Objective Vitals and I/O Vital Sign (Last 24 Hours) 03/15/24 03/15/24 07:50 08:19 Temp 98.4 Pulse 88 Resp 18 B/P (MAP) 122/79 Pulse Ox 97 O2 Delivery Room Air O2 Flow Rate 0 FiO2 21 Intake & Output (last 24hrs) 03/14/24 03/14/24 03/15/24 14:59 22:59 06:59 Intake Total 50.0 ml 1000.0 ml Balance 50.0 ml 1000.0 ml General: Alert, Oriented X3, Cooperative, No acute distress HEENT: Atraumatic, PERRLA, EOMI, Mucous membr. moist/pink Neck: Supple, No JVD Lungs: Clear to auscultation, Normal air movement, NL respiratory effort Heart: Regular rate, Regular rhythm, Normal S1, Normal S2 Abdomen: Normal bowel sounds, Soft, No tenderness Extremities: No clubbing, No cyanosis, No edema Skin: No rashes, No breakdown, No significant lesion Neuro: Normal speech, Strength at 5/5 X4 ext, Cranial nerves 3-12 NL Psych/Mental Status: Mental status NL, Mood NL, Thoughts/Content NL Results RADIOLOGY: [] EKG: [] Laboratory Tests Test 03/14/24 15:47 03/14/24 20:52 03/15/24 03:57 03/15/24 06:01 Whole Blood Glucose 78 MG/DL (70-110) 80 MG/DL (70-110) 73 MG/DL (70-110) White Blood Count 7.9 K/uL (4.8-10.8) Red Blood Count 2.95 MIL/uL (4.00-5.50) L Hemoglobin 8.6 g/dL (12.0-16.0) L Hematocrit 26.6 % (36-48) L Mean Corpuscular Volume 90.2 fL (79-99) Mean Corpuscular Hemoglobin 29.2 pg (27.0-33.0) Mean Corpuscular Hemoglobin Concent 32.3 g/dL (32.0-36.0) Red Cell Distribution Width 14.6 % (11.0-15.5) Platelet Count 188 K/uL (130-400) Mean Platelet Volume 11.7 fL (7.5-10.5) H Nucleated Red Blood Cells 0.3 % (0.0-0.19) H Sodium Level 142 mmol/L (136-145) Potassium Level 3.1 mmol/L (3.5-5.1) L Chloride Level 107 mmol/L (101-111) Carbon Dioxide Level 31 mmol/L (21-32) Blood Urea Nitrogen 4 mg/dL (7-18) L Creatinine 0.4 mg/dL (0.5-1.0) L Glomerular Filtration Rate Calc 133 mL/min (>90) Random Glucose 73 mg/dL (70-105) Total Calcium 8.4 mg/dL (8.5-10.1) L Test 03/15/24 12:32 Whole Blood Glucose 83 MG/DL (70-110) Medications Current Medications Hydromorphone HCl 1 mg ONCE ONCE IVP; Start 03/11/24 at 21:30; Stop 03/11/24 at 22:25; Status DC Lactated Ringer's 1,000 ml @ 0 mls/hr ONCE ONCE IV Last administered on 03/11/24at 21:53; Start 03/11/24 at 21:30; Stop 03/11/24 at 21:31; Status DC Fentanyl Citrate 50 mcg ONCE ONCE IVP Last administered on 03/11/24at 22:28; Start 03/11/24 at 22:00; Stop 03/11/24 at 22:01; Status DC Iohexol 35,000 mg STK-MED ONCE IV; Start 03/11/24 at 22:37; Stop 03/11/24 at 22:38; Status DC Lactated Ringer's 1,000 ml @ 75 mls/hr [id number] IV Last administered on 03/14/24at 10:08; Start 03/12/24 at 01:30; Stop 03/14/24 at 14:56; Status DC Acetaminophen 650 mg Q6H PRN RC; Start 03/12/24 at 01:30; Stop 04/11/24 at 01:29 Ondansetron HCl 4 mg Q6H PRN IV Last administered on 03/12/24at 01:51; Start 03/12/24 at 01:30; Stop 04/11/24 at 01:29 Hydralazine HCl 10 mg Q6H PRN IV; Start 03/12/24 at 01:30; Stop 03/13/24 at 09:22; Status DC Pantoprazole Sodium 40 mg DAILY IVP; Start 03/12/24 at 09:00; Stop 03/12/24 at 05:14; Status DC Hydromorphone HCl 0.5 mg Q4H PRN IVP Last administered on 03/12/24at 06:00; Start 03/12/24 at 01:30; Stop 03/13/24 at 10:05; Status DC Potassium Chloride 100 ml @ 50 mls/hr AD PRN IV Last administered on 03/15/24at 06:20; Start 03/12/24 at 01:30; Stop 04/11/24 at 01:29 Insulin Human Regular INSULIN SLIDING SCAL... ACHS SQ; Start 03/12/24 at 07:30; Stop 04/11/24 at 07:29 Albuterol Sulfate 2.5 mg [id number] PRN IH; Start 03/12/24 at 01:30; Stop 04/11/24 at 01:29 Pantoprazole Sodium 40 mg BID IVP Last administered on 03/13/24at 08:47; Start 03/12/24 at 05:30; Stop 03/13/24 at 09:15; Status DC Magnesium Sulfate 50 ml @ 0 mls/hr PROTOCOL PRN IV Last administered on 03/12/24at 06:16; Start 03/12/24 at 06:00; Stop 03/12/24 at 10:20; Status DC Potassium Chloride 100 ml @ 100 mls/hr AD PRN IV Last administered on 03/13/24at 00:41; Start 03/12/24 at 06:00; Stop 04/11/24 at 05:59 Acetaminophen/ Hydrocodone Bitart 15 ml Q3H PRN PO Last administered on 03/13/24at 06:49; Start 03/12/24 at 08:30; Stop 03/13/24 at 10:05; Status DC Magnesium Sulfate 50 ml @ 0 mls/hr PROTOCOL PRN IV Last administered on 03/13/24at 06:50; Start 03/12/24 at 10:30; Stop 04/11/24 at 10:29 Fluoxetine HCl 20 mg DAILY PO Last administered on 03/15/24at 09:34; Start at 09:00; Stop 04/12/24 at 08:59 Piperacillin Sod/ Tazobactam Sod 3.375 gm Q8H IV Last administered on 03/15/24at 10:38; Start 03/12/24 at 10:30; Stop 03/22/24 at 10:29 Enoxaparin Sodium 40 mg DAILY SQ Last administered on 03/15/24at 10:47; Start 03/13/24 at 09:00; Stop 04/12/24 at 08:59 Pantoprazole Sodium 40 mg DAILY PO Last administered on 03/14/24at 09:56; Start 03/14/24 at 09:00; Stop 03/14/24 at 15:01; Status DC Magnesium Oxide 400 mg BID PO Last administered on 03/15/24at 09:33; Start 03/13/24 at 09:30; Stop 04/12/24 at 09:29 Hydralazine HCl 10 mg Q4H4 PRN PO; Start 03/13/24 at 09:30; Stop 04/12/24 at 09:29 Acetaminophen/ Hydrocodone Bitart 10 ml Q3H PRN PO; Start 03/13/24 at 11:30; Stop 03/18/24 at 11:29 Midodrine 5 mg TID PRN PO; Start 03/13/24 at 10:30; Stop 04/12/24 at 10:29 Gabapentin 100 mg TID PO Last administered on 03/13/24at 22:22; Start 03/13/24 at 14:00; Stop 03/14/24 at 08:54; Status DC Acetaminophen 650 mg QID PO Last administered on 03/13/24at 13:46; Start 03/13/24 at 13:00; Stop 03/13/24 at 17:43; Status DC Acetaminophen 650 mg Q4H PRN PO; Start 03/13/24 at 18:00; Stop 04/12/24 at 17:59 Acetaminophen 650 mg Q4H PO; Start 03/13/24 at 18:30; Stop 03/13/24 at 18:24; Status DC Iohexol 75 ml STK-MED ONCE IV; Start 03/14/24 at 05:32; Stop 03/14/24 at 05:33; Status DC Dextrose 50 ml AD PRN IV; Start 03/14/24 at 06:00; Stop 04/13/24 at 05:59 Glucagon 1 mg AD PRN IM; Start 03/14/24 at 06:00; Stop 04/13/24 at 05:59 Dextrose 50 ml STK-MED ONCE IV Last administered on 03/14/24at 05:46; Start at 05:35; Stop 03/14/24 at 05:35; Status DC Gabapentin 200 mg TID PO Last administered on 03/15/24at 09:34; Start 03/14/24 at 09:00; Stop 03/15/24 at 12:44; Status DC Sennosides 2 tab HS PO Last administered on 03/14/24at 21:23; Start 03/14/24 at 21:00; Stop 04/13/24 at 20:59 Pantoprazole Sodium 40 mg BID PO Last administered on 03/15/24at 09:34; Start 03/14/24 at 21:00; Stop 04/13/24 at 08:59 Polyethylene Glycol 17 gm DAILY PO Last administered on 03/15/24at 09:33; Start 03/15/24 at 09:00; Stop 04/14/24 at 08:59 Potassium Chloride 20 meq BID PO Last administered on 03/15/24at 10:38; Start 03/15/24 at 10:30; Stop 04/14/24 at 10:29 Gabapentin 300 mg TID PO; Start 03/15/24 at 14:00; Stop 04/14/24 at 13:59; Status UNV Assessment/Plan ASSESSMENT: THIS IS A 33 YR OLD WOMAN WITH HISTORY OF MORBID OBESITY / BM I> 40 FATTY LIVER ALLERGIC RHINITIS DM II HYPERLIPIDEMIA MIXED LUMBAR SPONDYLOSIS GERD MAYRA HX THYROID NODULE HX KIDNEY STONES MILD INTERMITTENT ASTHMA HYPERTENSIVE HEART DISEASE WITH DIASTOLIC DYSFN SHE IS S/P GASTRIC SLEEVE 03/05/2024 AND PRESENTED WITH ACUTE ABD PAIN, HYPOTENSION WITH DEHYDRATION LEFT PERISPLENIC COMPLEX FLUID COLLECTION ON CT - 03/11/2024 - POSSIBLE BLOOD PRODUCT COMPLEX FLUID COLLECTION ADJACENT TO STOMACH AT POST OP SITE 2.5X 10.4 CM ON ON - 03/11/2024 - POSSIBLE HEMATOMA SPLENIC INJURY, POST OPERATIVE MILD COMPLEX ASCITES LEUKOCYTOSIS HYPOKALEMIA ATHEROSCLEROSIS OF [place] ON CT PLAN: CLINICALLY IMPROVING TOLERATING FULL LIQUID DIET BOWELS MOVING TOLERATING GABAPENTIN AND WILL CONT TO INCREASE SUPPLEMENT ELECTROLYTES AND MAGNESIUM NEEDED CONT ANTIBIOTICS W ZOSYN GLUCOMETER WITH ADDITIONAL INSULIN NEEDED DVT PROPHYLAXIS WITH LOVENOX AND STRESS ULCER PROPHYLAXIS W PPI CONT INCREASING AMBULATION POSSIBLE DISCHARGE PLANNING TOMORROW IF CONTINUES TO IMPROVE VS REPEAT CT IF DECLINES HECTOR ESTRADA MD Mar 15, 2024 12:49
--- NOTE | 2024-03-15 13:20 | NUR ---
TRANSFER Patient transferred now to Room 326.
[2024-03-15] MEDS: GABAPENTIN 300 MG CAPSULE PO SCH (14:15)
[2024-03-16 02:16] VITALS: BP 133/74; PULSE 85; RESP 18; TEMP 98
[2024-03-16 04:43] VITALS: BP 131/60; PULSE 83; RESP 18; TEMP 98.5
[2024-03-16 05:58] LABS: HEMATOCRIT 25.7 % (36-48); MEAN CORPUSCULAR HEMOGLOBIN 29.6 pg (27.0-33.0); MEAN CORPUSCULAR HGB CONC 32.3 g/dL (32.0-36.0); MEAN CORPUSCULAR VOLUME 91.8 fL (79-99); RED BLOOD CELL COUNT(AUTO) 2.8 MIL/uL (4.00-5.50); WHITE BLOOD COUNT (AUTO) 6.8 K/uL (4.8-10.8)
[2024-03-16 06:17] LABS: CREATININE 0.5 mg/dL (0.5-1.0); POTASSIUM 3.5 mmol/L (3.5-5.1)
[2024-03-16] MEDS ORDERED: GABA300C PO (07:42)
[2024-03-16 08:00] VITALS: O2SAT 95
[2024-03-16 08:38] VITALS: BP 130/83; PULSE 74; RESP 21; TEMP 98.4
[2024-03-16] MEDS: acetaMINOPHEN 325 MG TAB PO PRN (11:57)
[2024-03-16 12:30] VITALS: BP 126/72; PULSE 72; RESP 20; TEMP 98.2
--- NOTE | 2024-03-16 14:23 | DS ---
DISCHARGE SUMMARY Date of Visit: Mar 16, 2024 Time of Visit: 14:22 ADMISSION DATE: Mar 11, 2024 at 23:47 DISCHARGE DATE: Mar 16, 2024 ATTENDED PHYSICIAN: Hilda Guillaume MD DISCHARGE DIAGNOSIS: ACUTE ABD PAIN, HYPOTENSION WITH DEHYDRATION LEFT PERISPLENIC COMPLEX FLUID COLLECTION ON CT - 03/11/2024 COMPLEX FLUID COLLECTION ADJACENT TO STOMACH AT POST OP SITE 2.5X 10.4 CM ON ON - 03/11/2024 - POSSIBLE HEMATOMA SPLENIC INJURY, POST OPERATIVE MILD COMPLEX ASCITES, POST OPERATIVE LEUKOCYTOSIS - RESOLVED HYPOKALEMIA - RESOLVED NARCOTIC INDUCED CONSTIPATION S/P GASTRIC SLEEVE 03/05/[address]A ON [address] MORBID OBESITY / BM I> 40 FATTY LIVER ALLERGIC RHINITIS DM II HYPERLIPIDEMIA MIXED LUMBAR SPONDYLOSIS GERD MAYRA HX THYROID NODULE HX KIDNEY STONES MILD INTERMITTENT ASTHMA HYPERTENSIVE HEART DISEASE WITH DIASTOLIC DYSFN CHIEF ESTIMATOR(S): [place] - DR LEO KULKARNI PROCEDURES: RADIOLOGY: CT ABDOMEN/PELVIS W/CONTRAST FINDINGS: No pleural effusion is seen bilaterally. There is no evidence of parenchymal disease or pulmonary nodule of the visualized lower lungs. Degenerative changes of the thoracolumbar spine are present. The heart is not enlarged. Liver is enlarged with fatty changes measuring 18 cm. Post gastric surgical changes are seen. Complex fluid is also seen adjacent to the stomach at the postop site measuring 2.5 x 10.4 cm may be related to hematoma. There is left perisplenic complex fluid collection may be related to blood product. Clinical correlation is recommended. Splenic injury with postop bleed cannot be excluded. The liver, adrenal glands and pancreas are unremarkable. There is no evidence of hydronephrosis bilaterally. No evidence of renal stone is seen. Fecal material is seen in the colon. There are normal size retroperitoneal and mesenteric lymph nodes. There is small complex ascites. Atherosclerotic changes are present. Pelvic sidewalls are symmetric bilaterally. Bladder is well distended without wall thickening. IMPRESSION: 1. There is left perisplenic complex fluid collection may be related to blood product. Clinical correlation is recommended. Complex fluid is also seen adjacent to the stomach at the postop site measuring 2.5 x 10.4 cm may be related to hematoma. Splenic injury with postop bleed cannot be excluded. There is small complex ascites. Findings may be related to hemoperitoneum. Report was given to the emergency room physician. CT CHEST PE PROTOCOL WWO CONT FINDINGS: No CT evidence of filling defect is seen to suggest pulmonary embolus. No CT evidence of aortic dissection is seen. No evidence of parenchymal disease is seen. No CT evidence of pleural effusion or pericardial effusion is seen. The heart is enlarged. No evidence of adrenal mass is seen. There is small perihepatic and moderate perisplenic complex fluid collection. Due to patient's recent history of abdominal procedure, findings may relate to hemopericardium. Post gastric surgical changes are seen. Degenerative changes of the spine are noted. IMPRESSION: 1. No CT evidence of acute pulmonary embolus is seen. There is small perihepatic and moderate perisplenic complex fluid collection. Due to patient's recent history of abdominal procedure, findings may relate to hemopericardium. Post gastric surgical changes are seen. Report was given to the emergency room physician. CHEST 1VW FINDINGS: A frontal projection of the chest was obtained. There are bilateral pulmonary infiltrates suggestive of pulmonary vascular congestion with possible superimposed pneumonitis. The heart is borderline enlarged. Degenerative changes are seen. No evidence of aortic calcification is seen. IMPRESSION: Bilateral pulmonary infiltrates are seen suggestive of pulmonary vascular congestion with possible superimposed pneumonitis. CT ABDOMEN WITH CONTRAST. CT PELVIS WITH CONTRAST FINDINGS/IMPRESSION: Unchanged small-volume complex abdominopelvic free fluid of splenic origin, without any new fluid. Remainder of the study is unchanged, including stable nonobstructing bilateral nephrolithiasis, left ovarian cyst, and left lung base atelectasis. HOSPITAL COURSE: THIS IS A 33 YR OLD WOMAN WITH HX GASTRIC SLEEVE 03/05/2024 WHO PRESENTED WITH ACUTE ABD PAIN, HYPOTENSION & DEHYDRATION AND FOUND TO HAV A LEFT PERISPLENIC COMPLEX FLUID COLLECTION ON CT ON 03/11/2024 WELL ANOTHER COMPLEX FLUID COLLECTION ADJACENT TO STOMACH AT POST OP SITE 2.5X 10.4 CM WITH POSSIBLE HEMATOMA, SPLENIC INJURY, AND MILD COMPLEX ASCITES THOUGHT TO BE DUE TO POST OPERATIVE CHANGES. SHE WAS COVERED WITH ANTIBIOTICS BUT CULTURES WERE NEGATIVE AND HER LEUKOCYTOSIS RESOLVED. HER HYPOTENSION DID RESOLVED AFTER 2 LITERS IF IVF HYDRATION. HER H/H DRIFTED AND HER LOVENOX WAS HELD BUT SHE WAS ABLE TO INCREASE HER AMBULATION VERY WELL. HER HYPOKALEMIA WAS REPLACED. SHE HAD A NEGATIVE WORK UP FOR PE AND REPEAT CT DID NOT SHOW ANY PROGRESSIVE CHANGES. [facility] DID CONSULT BUT THEY DID NOT FEEL ANY SURGICAL INTERVENTION WAS NEEDED. HER POST OP PAIN WAS TREATED WITH GABAPENTIN AND HER DIET AND ACTIVITY WERE ADVANCED TOLERATED ANDWEANED OFF NARCOTICS. ONCE STABLE SHE WAS DISCHARGED HOME WITH REPEAT CBC TO BE DONE OUTPATIENT BEFORE RESUMING HER LOVENOX. DIET: FULL LIQUID ACTIVITY: AMBULATION AT [facility] AND ENCOURAGED FREQUENTLY CONDITION: STABLE EQUIPMENT: NONE FOLLOW UP APPOINTMENT(S): DR GUILLAUME IN 2-5 DAYS DISPOSITION: HOME CODE STATUS: FULL MEDICATION RECONCILIATION : Home Medications were reconciled with hospital medications upon discharge and discussed with patient and/or responsible democrat. ADD GABAPENTIN 300 MG PO TID STOP HTCZ, JARDIANCE, LOSARTAN, METOPROLOL, NORETHINDRONE -ESTRADIOL RESUME ALL OTHER PREVIOUS MEDICATIONS MAY HOLD LOVENOX IF AMBULATING 100% DAILY DUE TO ANEMIA, UNTIL REPEAT CBC STABLE, USE TEDS DAILY ^ Home Meds Active Scripts Gabapentin (Neurontin) 300 Mg Capsule, 1 CAP PO TID for 30 Days, #90 CAP 0 Refills Prov:HILDA GUILLAUME MD 03/16/24 Tramadol HCl/Acetaminophen (Tramadol-Acetaminophn 37.5-325) 37.5 Mg-325 Mg Tablet, 1 TAB PO Q4HPRN PRN for pain, #30 TAB 0 Refills Prov:HILDA GUILLAUME MD 03/12/24 Famotidine (Famotidine) 40 Mg Tablet, 40 MG PO HS, #90 TAB Prov:HILDA GUILLAUME MD 03/12/24 Pantoprazole Sodium (Pantoprazole Sodium) 40 Mg Tablet.dr, 40 MG PO DAILY, #90 TAB Prov:HILDA GUILLAUME MD 03/12/24 Cetirizine HCl (Zyrtec) 10 Mg Tablet, 10 MG PO DAILY PRN for ALLERGIES, #90 TAB Prov:HILDA GUILLAUME MD 03/12/24 Reported Medications Enoxaparin Sodium (Lovenox) 40 Mg/0.4 Ml Disp.syrin, 60 MG SQ BID for 10 Days, #4 ML 0 Refills 03/12/24 Fluoxetine HCl (Fluoxetine HCl) 20 Mg Tablet, 20 MG PO DAILY, TAB 03/02/24 Discontinued Reported Medications Norethindrone A-E Estradiol (Microgestin) 1 Mg-20 Mcg Tablet, 1 EACH PO DAILY, TAB 03/02/24 Empagliflozin (Jardiance) 25 Mg Tablet, 25 MG PO DAILY, TAB 03/02/24 Chlorthalidone (Chlorthalidone) 25 Mg Tablet, 25 MG PO DAILY, TAB 03/02/24 Losartan Potassium (Losartan Potassium) 25 Mg Tablet, 25 MG PO DAILY, TAB 03/02/24 Metoprolol Succinate (Metoprolol Succinate) 100 Mg Tab.er.24h, 100 MG PO DAILY, TAB 03/02/24 Cyclobenzaprine HCl (Flexeril) 10 Mg Tab, 10 MG PO BID PRN for MUSCLE SPASMS, TAB 03/02/24 HILDA GUILLAUME MD Mar 16, 2024 14:23
--- NOTE | 2024-03-16 15:00 | NUR ---
Discharge Patient ready for discharge. DC instructions provided to patient including new prescription information and follow up information. Verbalized understanding and all questions answered. IV removed. Patient discharged home with family.
== END 2024-03-16 15:42 | disposition home or self-care (01) | DRG 394 ==
LOC: EDH 20:57 → EDHIP 23:47 → 2BH 03-12 00:19 → 2AH 03-12 14:48 → 3DH 03-15 13:25
PROVIDERS: ADMIT Internal Medicine; ATTEND Internal Medicine
DX: K91.89 Other postprocedural complications and disorders of digestive system (principal); R18.8 Other ascites; S36.00XA Unspecified injury of spleen, initial encounter; Z68.43 Body mass index [BMI] 50.0-59.9, adult; M54.2 Cervicalgia; J44.89 Other specified chronic obstructive pulmonary disease; E11.9 Type 2 diabetes mellitus without complications; I49.3 Ventricular premature depolarization; N83.209 Unspecified ovarian cyst, unspecified side; R55 Syncope and collapse; Z98.84 Bariatric surgery status; D72.829 Elevated white blood cell count, unspecified; E87.6 Hypokalemia; I25.10 Atherosclerotic heart disease of native coronary artery without angina pectoris; G47.33 Obstructive sleep apnea (adult) (pediatric); E66.01 Morbid (severe) obesity due to excess calories; I11.9 Hypertensive heart disease without heart failure; E78.2 Mixed hyperlipidemia; J45.20 Mild intermittent asthma, uncomplicated; G47.30 Sleep apnea, unspecified; K76.0 Fatty (change of) liver, not elsewhere classified; M47.816 Spondylosis without myelopathy or radiculopathy, lumbar region; E04.1 Nontoxic single thyroid nodule; K21.9 Gastro-esophageal reflux disease without esophagitis; I70.0 Atherosclerosis of aorta; R14.0 Abdominal distension (gaseous); T40.605A Adverse effect of unspecified narcotics, initial encounter; K59.03 Drug induced constipation; E86.0 Dehydration; Z87.442 Personal history of urinary calculi; Z51.5 Encounter for palliative care; Z79.84 Long term (current) use of oral hypoglycemic drugs; Z79.899 Other long term (current) drug therapy
CPT/HCPCS: 36415; 71045; 71270; 74177; 80048; 80076; 82306; 82607; 82948; 83036; 83605; 83690; 83735; 83880; 84100; 84132; 84145; 84207; 84425; 84484; 84703; 85014; 85018; 85025; 85027; 85610; 85730; 86850; 86900; 86901; 87040; 94664; 96361; 96374; 99291; G0378; J1171; J1650; J2405; J2470; J2543; J3010; J3475; J3480; J7070; J7120; Q9967

== ENCOUNTER → 2024-03-17 | Outpatient (CLI) | payer OTHER ==
[~2024-03-17] MED LIST changes: -CHLO25TA3 PO; -CYCL10TA16 PO; -EMPA25TA PO; +ENOX40DI8 SQ; +FAMO40TA7 PO; +GABA300C PO; -LOSA25TA41 PO; -METO-409 PO; +PANT40TA54 PO; +TRAM-543 PO; -[UNRECOGNIZED DRUG - CODE] PO
[2024-03-17 13:23] LABS: BASOPHILS # (AUTO) 0.01 K/uL (0.00-0.20); BASOPHILS % (AUTO) 0.1 % (0.0-5.0); EOSINOPHILS # (AUTO) 0.12 K/uL (0.00-0.70); EOSINOPHILS % (AUTO) 1.5 % (0.0-8.0); HEMATOCRIT 28.5 % (36-48); IMMATURE GRANULOCYTE ABSOLUTE 0.04 K/uL (0-1); LYMPHOCYTES # (AUTO) 1.9 K/uL (1.0-4.8); LYMPHOCYTES % (AUTO) 23.7 % (21.0-51.0); MEAN CORPUSCULAR HEMOGLOBIN 28.9 pg (27.0-33.0); MEAN CORPUSCULAR HGB CONC 30.9 g/dL (32.0-36.0); MEAN CORPUSCULAR VOLUME 93.8 fL (79-99); MONOCYTES # (AUTO) 0.6 K/uL (0.1-1.0); NEUTROPHILS # (AUTO) 5.2 K/uL (1.8-7.7); NEUTROPHILS % (AUTO) 67.2 % (40.0-77.0); PLATELET COUNT (AUTO) 246 K/uL (130-400); RED BLOOD CELL COUNT(AUTO) 3.04 MIL/uL (4.00-5.50); RED CELL DISTRIBUTION WIDTH 15.5 % (11.0-15.5); WHITE BLOOD COUNT (AUTO) 7.8 K/uL (4.8-10.8)
[2024-03-17 13:24] LABS: RETICULOCYTE % (AUTO) 4.05 % (0.42-2.23)
[2024-03-17 13:25] LABS: APPEARANCE,URINE CLEAR (CLEAR); BILIRUBIN,URINE NEGATIVE (NEGATIVE); COLOR,URINE YELLOW (YELLOW); GLUCOSE, URINE (UA) NEGATIVE (NEGATIVE); KETONES,URINE 150 mg/dL (NEGATIVE); LEUKOCYTE ESTERASE ,URINE 25 Leu/uL (NEGATIVE); NITRATE,URINE NEGATIVE (NEGATIVE); OCCULT BLOOD,URINE LARGE (NEGATIVE); PROTEIN,URINE 20 mg/dL (NEGATIVE); UROBILINOGEN,URINE 3 mg/dL (0.2-1.0)
[2024-03-17 13:43] LABS: HEMOGLOBIN A1C 5.6 % (4.0-6.0)
[2024-03-17 13:59] LABS: % IRON SATURATION 18.6 % (22-44)
[2024-03-17 13:59] LABS: ADD UA MICROSCOPIC YES
[2024-03-17 14:06] LABS: ALBUMIN 2.9 g/dL (3.5-5.0); BILIRUBIN,TOTAL 0.9 mg/dL (0.2-1.0); CREATININE 0.6 mg/dL (0.5-1.0); POTASSIUM 3.3 mmol/L (3.5-5.1); THYROID STIMULATING HORMONE 4.59 uIU/mL (0.36-3.74); TOTAL PROTEIN, SERUM 6.7 g/dL (6.0-8.3)
[2024-03-17 14:07] LABS: BACTERIA,URINE RARE /HPF (None Seen); MUCUS,URINE RARE LPF (None Seen); RBC,URINE TNTC /HPF (0-1); SQUAMOUS EPITHELIAL CELL,UR FEW /HPF (0-2)
== END | disposition home or self-care (01) ==
LOC: LAB 12:08
PROVIDERS: ATTEND Internal Medicine
DX: Z13.0 Encounter for screening for diseases of the blood and blood-forming organs and certain disorders involving the immune mechanism (principal); Z13.29 Encounter for screening for other suspected endocrine disorder; E11.22 Type 2 diabetes mellitus with diabetic chronic kidney disease; E11.65 Type 2 diabetes mellitus with hyperglycemia; N18.2 Chronic kidney disease, stage 2 (mild); E78.2 Mixed hyperlipidemia; Z79.899 Other long term (current) drug therapy
CPT/HCPCS: 36415; 80053; 80061; 81001; 82043; 82306; 82570; 82607; 82728; 83001; 83036; 84443; 85025